=== PATIENT | female | born 1935 | race Caucasian/White ===

== ENCOUNTER 2024-01-13 16:00 | Outpatient (REF) | payer MEDICARE, SELFPAY ==
--- NOTE | ~2024-01-13 | XR_ITS ---
EXAMINATION: XR CHEST CLINICAL INFORMATION: Cough COMPARISON: None available. TECHNIQUE: 2 views of the chest were obtained. FINDINGS: The lungs are hyperinflated. No focal consolidation, interstitial pulmonary edema or pneumothorax. There is slight blunting of the left costophrenic angle which may be due to pleural thickening versus tiny pleural effusion. Heart size is normal. Calcification of the thoracic aorta is indicative of atherosclerotic disease. A left-sided pacemaker pack with leads in the right atrium and right ventricle is seen.. Epicardial lead is also seen. Old right-sided healed rib fractures are seen. XR/XR chest 2V IMPRESSION: 1. No pneumonia. 2. Slight blunting of the left costophrenic angle which may be due to pleural thickening versus tiny pleural effusion.
== END 2024-01-13 16:01 | disposition home or self-care (01) ==
LOC: HO.XRAY 16:00
PROVIDERS: PCP Internal Medicine; Visit Provider Internal Medicine
DX: R05.9 Cough, unspecified (principal)
CPT/HCPCS: 71046

== ENCOUNTER 2024-12-07 12:58 | Outpatient (AMB) | payer MEDICARE, SELFPAY ==
--- NOTE | 2024-12-07 13:05 | A.OFFVIS_ITS ---
Intake Visit Reasons: recurrent UTI Intake Note: New patient is present for Recurrent UTI/Leakage Any Urology Med: None Antibiotic Allergies: None Blood Thinner:Eliquis PVR: 0ml Deep Submergence Vehicle Crewmember Required: No Printing Sign Machine Operator: Printing Sign Machine Operator Present (Kirstie) Accompanied by: Daughter Allergies No Known Allergies Allergy (Verified 12/07/24 13:15) HPI Comments Details: Janette Garza is a 89-year-old female patient of Dr. Quinteros who was accompanied by her daughter at today's office visit. She has a past medical history of hyperlipidemia, atrial fibrillation, and congestive heart failure. She presents to the office today as a new patient for recurrent urinary tract infections. In discussion with the patient today she reports a longstanding history of recurrent urinary tract infections however feels over the last 4-5 months they have been more frequent. She reports previously following up with a urologist in the and undergoing potential cystocele repair however she is unsure as to exactly what the procedure was called. She reports finishing antibiotic therapy last night for a urinary tract infection that was treated by her PCP. She also reports having gone to urgent care for multiple UTI like symptoms. We discussed at length potential causes of recurrent urinary tract infections as well as further treatment options and risks and benefits of these treatment options. We discussed obtaining retroperitoneal ultrasound for further assessment evaluation. In office urinalysis results reviewed with the patient today trace microscopic hematuria noted. She denies any previous history of nicotine dependence and or workplace chemical exposure. We discussed potential causes of microscopic hematuria as well as further workup. PVR 0 mL. She currently denies any UTI like symptoms however has just finished antibiotic therapy yesterday. She reports typical UTI symptoms are fatigue and urinary leakage. She currently denies nocturia, hematuria, dysuria, foul smelling urine, changes to urinary stream, flank pain, fever, and or chills. She otherwise offers no other issues or concerns at this time. [facility] Medical History Hyperlipidemia Congestive heart failure Atrial fibrillation Review of Systems Const All systems reviewed & are unremarkable except as noted in HPI and below Eyes Reports no additional complaints ENT Reports no additional complaints Card Reports as per HPI Resp Reports no additional complaints GI Reports no additional complaints Reports as per HPI Musc Reports no additional complaints Neuro Reports no additional complaints Psych Reports no additional complaints Endo Reports no additional complaints Tutu/Lymph Reports no additional complaints Aller/Immun Reports no additional complaints Physical Exam Const General: cooperative, healthy appearing, comfortable, no acute distress, well developed, alert and awake Orientation/consciousness: patient oriented x3 Limitations: no limitations HEENT Head: Yes normal to inspection, Yes normocephalic and Yes atraumatic Ears: hearing grossly normal bilaterally Eyes General: appearance normal, both eyes and all related structures Neck Neck: Yes normal visual inspection and Yes trachea midline Chest Chest palpation & inspection: normal inspection of the chest Resp Effort & Inspection: normal respiratory effort and able to speak in complete sentences Cardio Rate: regular rate GI Inspection: Yes normal to inspection General: Yes no CVA tenderness Back/Spine/Pelvis Back: no CVA tenderness Skin General skin exam: no rashes or lesions noted Neuro General: patient oriented x3 Extrem General: Yes normal to inspection Psych Appearance: grossly normal and well kempt Mental Status: mental status grossly normal Speech and movement: Normal speech and movement present and Clear speech present Affect: normal affect Attitude: cooperative Thought process: Normal thought process present Thought content: Normal thought content present Insight: Fair insight present (Psych) Judgement: Fair judgement present (Psych) Office Procedures Post Void Residual Post Residual Void Post Void Residual (PVR): 0 15180-Stci Void Residual by ultrasound Results AMB Urinalysis, Automated UA Leukoctes 0 Denys/uL Last Edit by Barbara Grewal [facility] on 12/07/24 13:30 UA Nitrite Negative Last Edit by Barbara Grewal [facility] on 12/07/24 13:30 UA Urobilinogen 0.2 mg/dL Last Edit by Barbara Grewal [facility] on 12/07/24 13:3 0 UA Protein 0 mg/dL Last Edit by Barbara Grewal [facility] on 12/07/24 13:30 UA pH 7.5 Last Edit by Barbara Grewal [facility] on 12/07/24 13:30 UA Blood 10 Toni/uL Last Edit by Barbara Grewal [facility] on 12/07/24 13:30 UA Specific Jackson 1.010 Last Edit by Barbara Grewal [facility] on 12/07/24 13: 30 UA Ketone Negative Last Edit by Barbara Grewal [facility] on 12/07/24 13:30 UA Bilirubin 0 mg/dL Last Edit by ANDREY Alcocer on 12/07/24 13:30 UA Glucose 0 mg/dL Last Edit by ANDREY Alcocer on 12/07/24 13:30 Results Reviewed Results Reviewed: Laboratory Last Values Urine pH (Auto) 7.5 12/07/24 13:14 Specific Jackson (Auto) 1.010 12/07/24 13:14 Urine Protein (Auto) 0 mg/dL 12/07/24 13:14 Glucose (UA)(Auto) 0 mg/dL 12/07/24 13:14 Urine Ketones (Auto) Negative 12/07/24 13:14 Urine Blood (Auto) 10 Toni/uL 12/07/24 13:14 Urine Nitrite (Auto) Negative 12/07/24 13:14 Urine Bilirubin (Auto) 0 mg/dL 12/07/24 13:14 Urine Urobilinogen (Auto) 0.2 mg/dL 12/07/24 13:14 Leukocyte Esterase (Auto) 0 Denys/uL 12/07/24 13:14 Assessment & Plan Assessment & Plan (1) Recurrent urinary tract infection: Code(s): N39.0 - Urinary tract infection, site not specified Category: Medical Plan In office urinalysis results reviewed with the patient today; as noted above; will send for urine cytology. PVR 0 mL. Will obtain retroperitoneal ultrasound for further assessment evaluation. Start Estrace cream as discussed and prescribed. Start methenamine and vitamin-C as discussed and prescribed. We discussed potential for near future in office cystoscopy. We discussed potential causes of recurrent urinary tract infections as well as further treatment options and risks and benefits of these treatment options. Discussed UTI prevention with D mannose supplement, vitamin-C, increasing fluid intake, behavioral therapy with timed voiding, perineal hygiene and postcoital voiding, and management of constipation with stool softeners and increased fiber intake. She currently denies any UTI like symptoms however we discussed importance of calling office with any UTI like symptoms. Follow-up in 3 months with imaging to be completed prior and PVR at next office visit; or sooner with any issues, concerns, and or questions. Orders: Orders Urine Cytology Today N39.0 - Urinary tract infection, site not specified AMB Urinalysis Automated Today Z13.9 - Encounter for screening, unspecified AMB Post Void Residual by ultrasound Today N39.0 - Urinary tract infection, site not specified US retroperitoneal comp Today N39.0 - Urinary tract infection, site not specified Medications: New estradiol 0.01%(0.1mg/gram) 2 grams vaginal DAILY 90 days 42.5 grams 3RF methenamine hippurate 1 g PO daily 90 days 90 tabs 1RF ascorbic acid (vitamin C) 1 g PO DAILY 90 days 90 tabs 1RF N39.0 - Urinary tract infection, site not specified Patient Instructions: The patient had an opportunity to ask questions regarding the treatment plan. All questions were answered. Physical exam, labs, and imaging were discussed and reviewed in detail. As well as risks, benefits, and discussion of treatment choices. No major barriers to understanding were identified. The patient expressed understanding and agreement with the above treatment plan. The patient was made aware they should contact our office by phone for worsening of their current condition, the appearance of new symptoms, or with any questions or concerns. Compliance is encouraged with any medications and follow up testing that is ordered. It is a privilege to be allowed the opportunity to participate in? your urological care.? Again, if you have any questions or concerns If you have any questions or concerns please do not hesitate to contact me. The office is [phone]. This note is constructed using voice recognition software. While every effort has been made to ensure accuracy dresser tender errors may have been included. Yours sincerely, EL Parmar-IVÁN Coding Level of Care Code New Pt Level 4 (22161) Diagnoses Recurrent urinary tract infection N39.0 CPT Codes Post Residual Void - PVR CPT Code: 94670-Lwfd Void Residual by ultrasound ([id number])
--- OUTSIDE RECORDS SUMMARY | 2024-12-07 15:05 | XMS_ITS | Clinical Summary ---
Author Organization [facility] Address [phone] [place] [id number] Care Team Providers Care Pressfitter Name Role Phone Anmol Quinteros DO Primary Care Provider [phone] Allergies Active Allergy Reactions Criticality Noted Date Comments [facility] Dust 02/19/2021 Other Reaction(s): NASAL CONGESTION Mold Other (See Comments) 02/19/2021 Medications Medication Sig Dispensed Refills Start Date End Date Status metoprolol succinate (TOPROL-XL) 25 MG 24 hr tablet 05/28/2023 Active aspirin 81 MG EC tablet Take 81 mg by mouth daily. pt reports not taking 10/30/2024 Active magnesium oxide 250 mg (150 mg elemental) Tab Take 400 mg by mouth daily. Active omega-3 fatty acids-fish oil 340-1,000 mg Cap Take 1 capsule by mouth daily. 900mn Active levothyroxine (SYNTHROID,LEVOTH ROID) 25 MCG tablet Take 25 mcg by mouth every morning. Active ELIQUIS 2.5 mg Take 1 tablet (2.5 mg total) by mouth 2 (two) times a day. 180 tablet 3 02/22/2024 Active potassium chloride (KLOR-CON) 10 MEQ ER tablet Take 1 tablet (10 mEq total) by mouth daily. 90 tablet 3 03/10/2024 Active atorvastatin (LIPITOR) 40 MG tablet Take 1 tablet (40 mg total) by mouth daily. 90 tablet 3 03/11/2024 Active acetaminophen (TYLENOL) 500 MG tablet Take 500 mg by mouth daily as needed. Active ascorbic acid, vitamin C, (VITAMIN C) 500 MG tablet Take 1 tablet by mouth 2 (two) times a day. Active cranberry fruit 400 mg Tab Take 400 mg by mouth daily. Active bumetanide (BUMEX) 1 MG tabletIndications :Other congestive heart failure [The details of the medication are not available because there are pending changes by a home health clinician.] 180 tablet 3 08/05/2024 07/31/2025 Active Additional Information Patient taking differently:2 mg Oral Daily, 1-2 tabs dailyHold while on ABXHold for BP <110/60, Reported on 11/05/2024 cholecalciferol, vitamin D3, (VITAMIN D3) 25 mcg (1,000 unit) capsule Take 1,000 Units by mouth daily. 11/16/2024 Active cefdinir (OMNICEF) 300 MG capsule Take 300 mg by mouth daily. 12/02/2024 Active cefdinir (OMNICEF) 300 MG capsule Take 300 mg by mouth daily. ordered by Elma jaquez 11/04/2024 11/10/2024 Active Problems Problem Noted Date Diagnosed Date Congestive heart failure 06/17/2023 Assessment & Plan (09/13/2024 1:19 PM EST): This patient is currently euvolemic with no heart failure admissions EF is 25 to 30% from an old anterior wall HI Assessment & Plan (07/26/2024 1:37 PM EDT): She is euvolemic but was having some episodes of chest pressure which I will investigate with an echo and a pharmacologic stress test. I will follow-up with her thereafter Assessment & Plan (07/16/2023 4:35 PM EDT): We had a detailed discussion with the patient with regards to upgrade. In view of her age, nonischemic cardiomyopathy, absence of tachyarrhythmias on pacemaker patient opted not to undergo upgrade to ICD. Upgrade to ICD will not make any changes to her quality of life but has the potential to cardiovert her into normal rhythm. Patient at this point opted not to undergo upgrade. Assessment & Plan (07/07/2023 1:23 PM EDT): Probably not symptomatic from a heart failure standpoint at this time I have ordered a BMP and renal labs Assessment & Plan (06/17/2023 11:59 AM EDT): As mentioned this patient will get an echocardiogram so I can assess LV function and valvular structures. She is not known to have coronary disease. Currently she is euvolemic as above. Benign essential hypertension 06/17/2023 Assessment & Plan (09/13/2024 1:19 PM EST): Perfectly controlled to the guidelines. Assessment & Plan (07/26/2024 1:38 PM EDT): Well-controlled at this time Assessment & Plan (07/07/2023 1:22 PM EDT): Well-controlled Assessment & Plan (06/17/2023 11:59 AM EDT): Well-controlled to the guidelines. Pure hypercholesterolemia 06/17/2023 Assessment & Plan (09/13/2024 1:19 PM EST): LDL is aggressively controlled at less than 70 mg/dL. Assessment & Plan (07/26/2024 1:38 PM EDT): LDL should be less than 70 she is on high intensity statin therapy. Assessment & Plan (07/07/2023 1:23 PM EDT): LDL should be less than 70 Assessment & Plan (06/17/2023 12:00 PM EDT): LDL should be less than 70 mg/dL at this time. Presence of permanent cardiac pacemaker 06/17/20 Assessment & Plan (09/13/2024 1:20 PM EST): There have been no discharges and this is followed in our device clinic remotely Assessment & Plan (07/26/2024 1:37 PM EDT): This is functioning well Assessment & Plan (07/07/2023 1:22 PM EDT): At this time I will send her to our EP doctor for consideration of biventricular ICD upgrade I will see her in July Assessment & Plan (06/17/2023 12:00 PM EDT): She is going to bring in the device type so we can enroll this person in our remote monitoring clinic Encounters Date Type Department Care Team Description 12/02/2024 3:30 PM EST Home Care Visit [facility] [address] [place] [phone] Lyric Pierre, PT PT OASIS DISCHARGE VISIT 12/01/2024 Telephone [facility] [address] [place] [address] [address] [place] [address] Lucien Rao, SRINI 11/30/2024 Home Care Visit [facility] [address] [place] [phone] Magda Huerta, SALOME TELEPHONE ENCOUNTER 11/28/2024 Orders Only [facility] [address] [place] [address] Dustin Starks MD 11/25/2024 Documentation [facility] [address] [place] [address] Margot Whitaker COPILOT-HF 11/22/2024 12:15 PM EST Home Care Visit [facility] [address] [place] [phone] Magda Huerta, SALOME LUMBER STRAIGHTENED HOME VISIT 11/17/2024 2:15 PM EST Home Care Visit [facility] [address] [place] [address] Magda Huerta, SALOME LUMBER STRAIGHTENED HOME VISIT 11/16/2024 10:30 AM EST Home Care Visit [facility] [address] [place] [phone] Chauncey Calloway, RASTA SN DISCIPLINE DISCHARGE VISIT 11/15/2024 2:15 PM EST Home Care Visit [facility] [address] [place] [phone] Magda Huerta, LUMBER STRAIGHTENED LUMBER STRAIGHTENED HOME VISIT 11/14/2024 Refill [facility] [address] [place] [address] Bam Thomson MD Medication Refill 11/10/2024 12:30 PM EST Home Care Visit [facility] [address] [place] [address] Lyric Pierre, PT PT EVALUATION 11/08/2024 10:00 AM EST Home Care Visit [facility] [address] [place] [address] Kymberly lEy, RN SN PRECEPTOR CO-VISIT 11/08/2024 10:00 AM EST Home Care Visit [facility] [address] [place] [address] Chauncey Calloway RN SN HOME VISIT 11/05/2024 4:00 AM EST Home Care Visit [facility] [address] [place] [address] Humera Correa, RASTA SN HOME VISIT 11/04/2024 Home Care Visit [facility] [address] [place] [address] Kymberly Ely, RN CASE COMMUNICATION 11/03/2024 Home Care Visit [facility] [address] [place] [address] Ariana Chen, OT TELEPHONE ENCOUNTER 10/31/2024 Plan of Care Documentation [facility] [address] [place] [address] 10/30/2024 1:30 PM EST Home Care Visit [facility] [address] [place] [address] Kymberly Ely, RN SN OASIS START OF CARE (SOC) 10/28/2024 Orders Only [facility] [address] [place] [address] Homehealth, Nicki Limon MD 10/19/2024 Telephone [facility] [address] [place] [address] Brinda Dawson 10/15/2024 Refill [facility] [address] [place] [address] Bereket Antoine MD Medication Refill 09/21/2024 Telephone [facility] [address] [place] [address] Rafael Bentley DO 09/13/2024 1:00 PM EST Office Visit [facility] [address] [place] [address] Rafael Bentley DO Systolic congestive heart failure, unspecified HF chronicity (Primary Dx); Benign essential hypertension; Pure hypercholesterolemi a; Presence of permanent cardiac pacemaker 09/08/2024 11:27 AM EDT - 09/08/2024 11:59 PM EDT Hospital Encounter Non-Invasive Cardiology [address] [place] [address] Rafael Bentley DO Discharge Disposition: Home or Self Care 09/08/2024 11:27 AM EDT - 09/08/2024 11:59 PM EDT Hospital Encounter Echo Lab [address] [place] [address] Rafael Bentley DO Discharge Disposition: Home or Self Care 07/26/2024 Procedure Pass Echo Lab [address] [place] [address] from Last 3 Months Social History Tobacco Use Types Packs/Day Years Used Date Smoking Tobacco: Never Smokeless Tobacco: Current Tobacco Cessation:Ready to Q uit: Not Asked; Counseling Given: Not Answered Home Health Assessment: Transportation Answer Date Recorded Lack of Transportation (Medical) No 12/02/2024 Lack of Transportation (Non-Medical) No 12/02/2024 Patient Unable or Declines to Respond No 12/02/2024 Education Answer Date Recorded Are you interested in more education? Not on watson e 05/20/2023 Are you concerned about learning? Not on file 05/20/2023 No 05/20/2023 No 05/20/2023 Digital Access Answer Date Recorded No 05/20/2023 No 05/20/2023 Reliable internet access at home? Not on file 05/20/2023 Device with a working camera? Not on file Sex and Gender Information Value Date Recorded Sex Assigned at Not on file Gender Identity Not on file Sexual Orientation Not on file Last Filed Vital Signs Vital Sign Reading Time Taken Comments Blood Pressure 98/60 12/02/2024 4:05 PM EST Pulse 80 12/02/2024 4:05 PM EST Temperature 36.1 ??C (97 ??F) 12/02/2024 4:05 PM EST Respiratory Rate 18 11/05/2024 3:18 PM EST Oxygen Saturation 96% 12/02/2024 4:05 PM EST Inhaled Oxygen Concentration - - Weight 47.2 kg (104 lb) 11/16/2024 10:02 AM EST Height 154 cm (5' 0.63 ) 09/13/2024 1:02 PM EST Body Mass Index 19.89 09/13/2024 1:02 PM EST Plan of Treatment Upcoming Encounters Date Type Department Care Team (Late st Contact Info) Description 04/05/2025 1:00 PM EDT Office Visit [facility] [address] [place] [address] [address] [place] [address] Rafael Bentley, [address] [place] [phone] [email or web address] Health Maintenance Due Date Last Done Comments Adult Td,Tdap Booster 1936 DEPRESSION SCREENING 1948 HEPATITIS B SCREENING 1954 PNEUMOCOCCAL VACCINES (50+ years) (1 of 2 - PCV) 1955 ZOSTER VACCINES (1 of 2) 1986 OSTEOPOROSIS SCREENING INITI AL (ONE-TIME) 2001 RSV VACCINE (1 - 1-dose 75+ series) 2011 TSH LEVEL 03/25/2022 03/25/2021, 02/02/2021 INFLUENZA VACCINE (#1) 2024 COVID-19 VACCINE (1 - 2023-2 5 season) 2024 CREATININE LEVEL 08/01/2025 08/01/2024, 07/07/2023 POTASSIUM LEVEL 08/01/2025 08/01/2024, 07/07/2023 HEPATITIS A VACCINES Aged Out No long er eligible based on patient's age to complete this topic HEPATITIS B VACCINES Aged Out No long er eligible based on patient's age to complete this topic HIB VACCINES Aged Out No longer eligi ble based on patient's age to complete this topic MENINGOCOCCAL VACCINES (ACWY) Aged Out No longer eligible based on patient's age to complete this topic Medical Devices Not on file Procedures Procedure Name Priority Date/Time Associated Diagnosis Comments OUTSIDE EP STUDY Routine 10/17/2024 6:41 PM EST NC MYOCARDIAL PERFUSION PHARMACOLOGIC STRESS MULTIPLE Routine 09/08/2024 1:09 PM EDT Other forms of angina pectoris TTE COMPREHENSIVE W/ LVO CONTRAST Routine 09/08/2024 12:34 PM EDT Shortness of breath BASIC METABOLIC PANEL Routine 08/01/2024 12:18 PM EDT Other congestive heart failure from Last 3 Months or Most Recently Relevant to Health Maintenance Results * Outside EP Study Report Only (10/17/2024 6:41 PM EST) Dustin Starks MD CV ELECTROPHYSIOLOGY ORDERABLES * NC Myocardial Perfusion Pharmacologic Stress Multiple (09/08/2024 1:09 PM EDT) Max Predicted Heart Rate 132 bpm Stress/rest perfusion ratio 1.02 Nuc Stress EF 29 % SNMDIAVOL 226.0 mL SNMSYSVOL 161.0 mL Nuc Rest EF 29 % RNMDIAVOL 213.0 mL RNMSYSVOL 152.0 mL Anatomical Region Laterality Modality Heart, Vascular Ultrasound Narrative 09/08/2024 5:08 PM EDT Myocardial perfusion stress test report-abnormal 1 day rest stress protocol in supine and prone position images were obtained. Myocardial perfusion defects were seen in the following segments and severity Multiple myocardial perfusion defects were seen in apical, anterior apical, anterolateral and mid and basal segments. The myocardial perfusion defects are fixed in stress and rest images. No reversibility seen. LV function-finished with global hypokinesis and LV ejection fraction of 29% Left ventricle is dilated TID. ??1.02 Conclusion: Ischemia not seen. Infarction-seen in apical, anteroapical, anterolateral wall. LV function and EF-diminished with ejection fraction of 29% Recommendation ??; Abnormal myocardial perfusion stress test. Clinical correlation suggested. ?? Stress Findings NUCLEAR REPORT: TYPE OF STUDY: Myocardial Perfusion Imaging after a Sitting Regadenoson protocol with gated SPECT. PROTOCOL USED: One day Regadenoson rest-stress protocol in the supine position. Images were obtained in gated tomographic technique. Images were processed in SPECT format, reconstructed tomographically and compared [id number] in short axis, horizontal long axis and vertical long axis. DOSE: Technetium 99m Sestamibi 7.2 mCi injected intravenously in the right arm antecubital vein at rest on 09/08/2024 with post injection scan time of 60 minutes. Technetium 99m Sestamibi 21.6 mCi injected intravenously in the right arm antecubital vein after Regadenoson infusion on 09/08/2024 with post injection scan time of 40 minutes. Overall image quality is good. No motion artifact is present. ECG STRESS REPORT: SITTING REGADENOSON STUDY BMI: 21.23 The Nuclear Stress Test was performed as a pharmaceutical stress test due to the presence of V paced beats. Janette Allen received 0.4 mg of Regadenoson while sitting on a chair. Regadenoson was given IV push over 10 seconds as per protocol by Holly Sparks (MIGUEL), immediately followed by injection of Tc99m Sestamibi by Jose Fountain, the distribution engineering technologist. 1. EKG - Baseline EKG showed V paced. 2. SYMPTOMS -No chest pain. She did feel throat tightness and shortness of breath after the injection of Lexiscan which continued 3 minutes into recovery. She was reversed with 75 mg of aminophylline with immediate symptom relief. 3. PHYSIOLOGY - Resting HR was 86 bpm. After Lexiscan injection, HR 109 bpm 4. ARRHYTHMIAS -Rare isolated PVC, ventricular pair Conclusion -The EKG portion of this test was nondiagnostic due to the presence of V paced beats. There were no reported symptoms concerning for angina. Nuclear images pending and will be reported separately. See attached stress report for full details. Holly Sparks NP Stress Function Defect Left ventricular global function is severely reduced during stress. Stress ejection fraction is 29%. The stress end diastolic cavity size is moderately enlarged. Stress end diastolic size: 226.0 mL. The stress end systolic cavity size is moderately enlarged. Stress end systolic size: 161.0 mL. Rest Function Defect Left ventricular global function is severely reduced at rest. Resting ejection fraction was 29%. The rest end diastolic cavity size is moderately enlarged. Rest end diastolic size: 213.0 ml. The rest end systolic cavity size is moderately enlarged. Rest end systolic size: 152.0 mL. Nuclear Prior Study There is no prior study available for comparison. Nuclear Ancillary Finding There is no evidence of transient ischemic dilation (TID). The TID ratio is 1.02, which is normal. Perfusion Scoring Resting Summed Score: 11 Percent Normal: 16.18% Moderate count reduction in the following segments: basal inferolateral, apical anterior, apical septal, apical lateral and apex. Mild count reduction in the following segments: mid inferolateral. All other segments are normal. [facility] REST Perfusion Scoring Stress Summed Score: 5 Percent Normal: 7.35% Moderate count reduction in the following segments: basal inferolateral and apical anterior. Mild count reduction in the following segments: apex. All other segments are normal. SUPINE IMAGING STRESS Perfusion Scores: SRS Score: 11 Percentage Abnormal: 16.18% Perfusion Scores: SSS Score: 5 Percentage Abnormal: 7.35% Perfusion Scores: SDS Score: N/A Percentage Abnormal: N/A Procedure Note Ion Ahmadi MD - 09/08/2024 Myocardial perfusion stress test report-abnormal 1 day rest stress protocol in supine and prone position images wereobtained. Myocardial perfusion defects were seen in the following segments andseverity Multiple myocardial perfusion defects were seen in apical, anteriorapical, anterolateral and mid and basal segments. The myocardial perfusion defects are fixed in stress and rest images. No reversibility seen. LV function-finished with global hypokinesis and LV ejection fraction of29% Left ventricle is dilated TID. 1.02 Conclusion: Ischemia not seen. Infarction-seen in apical, anteroapical, anterolateral wall. LV function and EF-diminished with ejection fraction of 29% Recommendation ; Abnormal myocardial perfusion stress test. Clinical correlation suggested. Rafael Parks Arcoleo DO CV NM CARDIAC * TTE COMPREHENSIVE W/ LVO CONTRAST (09/08/2024 12:34 PM EDT) Height 154 cm Weight 50 kg Systolic BP 116 mmHg Diastolic BP 70 mmHg Interventricular Septum Thickness 9 6 - 11 mm Left Ventricle Internal Diameter End Diastole 60 37 - 52 mm Left Ventricle Internal Diameter End Systole 57 <35 mm Left Ventricular Outflow Tract Diameter 17.0 mm Left Ventricular Posterior Wall Thickness 8 6 - 11 mm Ejection Fraction 35 50 - 75 Percent Left Atrium Dimension Anterior-Posterior 37 15 - 40 mm Aortic Valve Mean Gradient 3 mmHg Aortic Valve Time Velocity Integral 228.0 mm Aortic Valve Peak Velocity 127.0 cm/s Aortic Valve Peak Gradient 6 mmHg Aortic Sinus Diameter 28 <40 mm Ascending Aorta Diameter 30 <36 mm Inferior Vena Cava Diameter 13 <21 mm Mitral Valve Deceleration Time 153 ms Mitral Valve A Wave Speed 87.3 cm/s Mitral Valve E Wave Speed 136.0 cm/s Raw LV EF% 10 % Relative Wall Thickness 0.27 0.22 - 0.42 Aortic Valve Prosthetic Peak Gradient 6 mmHg Aortic Valve Prosthetic Mean Gradient 3 mmHg Aorta Sinus Index by Height 1.82 cm/m Aorta Sinus CSA index by Height 4.00 cm2/m Asc Aorta CSA Index by Height 4.59 cm2/m Body Surface Area 1.46 m2 Left Atrial Volume Index 21 16 - 34 mL/m2 Aortic Valve Peak Velocity 1.3 m/s Left Atrial Volume 31 mL Left Atrial Volume Index by Height 20 mL/m LVOT VTI REST 16.0 cm Aortic Valve Sinus Index by BSA 19 mm/m2 Ascending Aorta Index 21 mm/m2 Ascending Aorta Index 21 mm Aortic Sinus Index 19 mm Ascending Aorta Diameter 21 mm Aortic Valve Sinus Index 1 19 19 - 27 mm AO ASC DIAM BSA INDEX 20.55 Left Ventricle Ea Lateral Wave Speed 5.0 cm/s MV E/E' Tissue Velocity Lateral 27.20 Left Ventricle E Wave Speed 136.0 cm/s Left Ventricle A Wave Speed 87.0 cm/s MV E/A ratio 1.6 Left Ventricle Ea Septal Wave Speed 5.9 cm/s MV E/e' septal 23.05 Left Ventricle E/e' Average 25.1 Echo E/Ea 23.05 Anatomical Region Laterality Modality Heart Ultrasound Narrative 09/09/2024 8:50 AM EDT Images from the original result were not included. 1. ??This patient was imaged during a paced rhythm. ??The estimated ejection fraction is 35%.There are no obvious regional wall motion abnormalities on the study. ??The left ventricular cavity is severely dilated with an end-diastolic dimension of 60 mm. ??Diastolic function was not assessed. 2. ??Normal RV size and function. 3. ??Trileaflet aortic valve with no evidence of aortic stenosis, the ascending aortic root is normal size. 4. ??There is moderate mitral regurgitation and myxomatous changes to the mitral leaflets. ??There is trace tricuspid insufficiency in the PA pressure was not able to Be calculated. 5. ??Normal pericardiumAnd when compared to the prior echocardiogram, no significant change. Left Ventricle The left ventricle is severely dilated. The LV internal diameter is 60 mm at end diastole. There is normal wall thickness. The LV ejection fraction is 35% (calculated via biplane measurement). LV diastolic function parameters are indeterminate in total. The E wave velocity is 136.0 cm/s. The A wave velocity is 87.0 cm/s. The E/A ratio is 1.6. The e' septal wave velocity is 5.9 cm/s. The e' lateral wave velocity is 5.0 cm/s. The average E/e' ratio is 25.1. Right Ventricle The right ventricle is normal in size. There is normal right ventricular systolic function. Left Atrium The left atrial volume index by BSA is 21 mL/m2. Right Atrium The right atrium is normal in size. There is a lead (pacer) present in the right atrium. The IVC is normal in size. 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 There is mild thickening of both mitral leaflets. There is extensive mitral annular calcification. There is no mitral stenosis. There is moderate mitral regurgitation. Tricuspid Valve The tricuspid valve appears normal. There is no tricuspid stenosis. There is trace tricuspid regurgitation. RV systolic pressure could not be estimated due to insufficient TR Doppler envelope. Aortic Valve The aortic valve is tricuspid. Multiple leaflets are mildly thickened at the tips. There is no aortic stenosis. There is trace aortic regurgitation. Pulmonic Valve The pulmonic valve appears normal. There is no pulmonic stenosis. There is trace pulmonic regurgitation. Pericardium There is a trace pericardial effusion. General Findings The image quality was fair (3). An ultrasound enhancing agent was administered IV, per ASE guidelines. The predominant rhythm during the study was a paced rhythm. Patient tolerated the procedure well. Comparison Findings Compared to prior TTE on 06/25/2023, IAS/IVS The interatrial septum appears normal. There is no evidence of patent foramen ovale (PFO). Rafael Parks Arcolealeah DO CV ECHO ORDERABLES * (ABNORMAL) Basic metabolic panel (08/01/2024 12:18 PM EDT) SODIUM 139 133 - 146 mmol/L [facility] CHLORIDE 97 96 - 108 mmol/L [facility] POTASSIUM 4.4 3.3 - 5.1 mmol/L [facility] CO2 29 21 - 35 mmol/L [facility] BUN 33(H) 6 - 19 mg/dL [facility] CREATININE 1.20 0.5 - 1.5 mg/dL [facility] GLUCOSE 78 70 - 99 mg/dL [facility] CALCIUM 9.8 8.4 - 10.3 mg/dL [facility] EGFR 44(L) >59 mL/min/1.7 3m2 [facility] Comment:Estimated glomerular filtration rate calculated using the CKD-EPI refit equation. ANION GAP 17 10 - 20 mmol/L [facility] Blood 08/01/2024 12:1 8 PM EDT 08/01/2024 12:22 PM EDT Holly Sparks DNP LAB BLOOD ORDERABL ES [facility] [address] [place] [address] from Last 3 Months or Most Recently Relevant to Health Maintenance Advance Directives Documents on File Type Date Recorded Patient Pickle Solution Maker Expl poornima ADAME 11/01/2024 Care Teams Pressfitter Relationship Specialty Start Date End Date BayronBlanca byersno [address] [place] [id number] PCP - General Internal Medicine 07/08/23 Additional Source Comments The information contained in this document represents components of the legal health record. It is not the complete legal health record.[facility]
--- OUTSIDE RECORDS SUMMARY | 2024-12-07 15:05 | XMS_ITS | Encounter Summary ---
Author Organization [facility] Address [phone] [place] [address] Care Team Providers Care Speaker Wirer Name Role Phone Anmol Quinteros DO Primary Care Provider [phone] Encounter Details Date Type Department Care Team (Late st Contact Info) Description 10/29/2023 Procedure Pass Non-Invasive Cardiology [address] [place] [address] Social History Tobacco Use Types Packs/Day Years Used Date Smoking Tobacco: Never Smokeless Tobacco: Current Education Answer Date Recorded Are you interested [...] on file Sexual Orientation Not on file documented as of this encounter Plan of Treatment Upcoming Encounters Date Type Department Care Team (Late st Contact Info) Description 04/05/2025 1:00 PM EDT Office Visit [facility] [address] [address] Rafael Bentley DO 50 [place] [address] documented as of this encounter Visit Diagnoses Not on filedocumented in this encounter Care Teams Speaker Wirer Relationship Specialty Start Date End Date Anmol Quinteros DO [address] [place] [address] 18 [place] [address] PCP - General Internal Medicine 07/08/23 documented as of this encounter Additional Source Comments The information contained in this document represents components of the legal health record. It is not the complete legal health record.[facility]
--- OUTSIDE RECORDS SUMMARY | 2024-12-07 15:05 | XMS_ITS | Encounter Summary ---
Author Organization [facility] Address [phone] [place] [address] Care Team Providers Care Real Estate Account Executive Name Role Phone Anmol Quinteros DO Primary Care Provider [phone] Reason for Visit * Auth/Cert (Routine) Specialty Diagnoses / Procedures Referred By Cinthya alvarez Referred To Contact Referral ID Status Reason Start Date Expiration Date Visits Re quested Visits Authorized [id number] 1 1 Encounter Details Date Type Department Care Team (Late st Contact Info) Description 11/30/2024 Home Care Visit [facility] [address] [place] [address] Magda Huerta, [facility] [address] [place] [address] [email or web address] TELEPHONE ENCOUNTER Social History Tobacco Use Types Packs/Day Years Used Date Smoking Tobacco: Never Smokeless Tobacco: Current Home Health Assessment: Transportation Answer Date Recorded Lack of Transportation (Medical) No 10/30/2024 Lack of Transportation (Non-Medical) No 10/30/2024 Patient Unable or Declines to Respond No 10/30/2024 Education Answer Date Recorded Are you interested [...] Description 04/05/2025 1:00 PM EDT Office Visit [facility] [address] [place] [address] Rafael Bentley DO 50 [place] [address] [email or web address] documented as of this encounter Visit Diagnoses Not on filedocumented in this encounter Care Teams Real Estate Account Executive Relationship Specialty Start Date End Date Anmol Quinteros DO [address] [place] [address] 18 [place] [address] PCP - General Internal Medicine 07/08/23 documented as of this encounter Additional Source Comments The information contained in this document represents components of the legal health record. It is not the complete legal health record.[facility]
--- OUTSIDE RECORDS SUMMARY | 2024-12-07 15:05 | XMS_ITS | Encounter Summary ---
Author Organization [facility] Address [phone] [place] [address] Care Team Providers Care Crew Attendant Name Role Phone Anmol Quinteros DO Primary Care Provider Reason for Visit * Reason Comments COPILOT-HF Encounter Details Date Type Department Care Team (Late st Contact Info) Description 11/25/2024 Documentation [facility] Cardiovascular [address] [address] Margot [place] [address] [place] [address] [email or web address] COPILOT-HF Social History Tobacco Use Types Packs/Day Years [...] on file documented as of this encounter Progress Notes * Margot [place] - 11/25/2024 2:41 PM EST Images from the original note were not included. 11/25/2024 Dear Anmol Swartz DO and Dr. Rafael Bentley DO, We previously identified your patient, Janette Kothari, as an eligible patient for our program. Upon further review of her medical record, we discovered she does not meet our program's criteria. At this point, we will discontinue our attempts to work with her. Thank you for supporting the COPILOT- HF program. Please do not hesitate to reach out to us if you have any further questions or comments. Best, Margot [place] COPILOT-HF [facility] p: f: documented in this encounter Plan of Treatment Upcoming Encounters Date Type Department Care Team (Late st Contact Info) Description 04/05/2025 1:00 PM EDT Office Visit [facility] [address] [place] [address] [facility] [address] [place] [address] Rafael Bentley DO [address] [place] [address] [email or web address] documented as of this encounter Visit Diagnoses Not on filedocumented in this encounter Care Teams Crew Attendant Relationship Specialty Start Date End Date Anmol Quinteros DO [address] [place] [address] 18 [place] [address] PCP - General Internal Medicine 07/08/23 documented as of this encounter Additional Source Comments The information contained in this document represents components of the legal health record. It is not the complete legal health record.[facility]
--- OUTSIDE RECORDS SUMMARY | 2024-12-07 15:05 | XMS_ITS | Encounter Summary ---
Author Organization [facility] Address [phone] [place] [address] Care Team Providers Care Free Lance Model Name Role Phone Anmol Quinteros DO Primary Care Provider [phone] Reason for Visit * Auth/Cert (Routine) Specialty Diagnoses / Procedures Referred By Cinthya alvarez Referred To Contact Referral ID Status Reason Start Date Expiration Date Visits Re quested Visits Authorized [id number] 1 1 Encounter Details Date Type Department Care Team (Late st Contact Info) Description 11/17/2024 2:15 PM EST Home Care Visit [facility] [address] [place] [address] Magda Huerta, PULL OVER MACHINE OPERATOR [address] [place] [address] [email or web address] PULL OVER MACHINE OPERATOR HOME VISIT Social History Tobacco Use Types Packs/Day Years [...] on file documented as of this encounter Last Filed Vital Signs Vital Sign Reading Time Taken Comments Blood Pressure 110/64 11/17/2024 2:21 PM EST Pulse 92 11/17/2024 2:21 PM EST Temperature 36.7 ??C (98 ??F) 11/17/2024 2:21 PM EST Respiratory Rate - - Oxygen Saturation 98% 11/17/2024 2:21 PM EST Inhaled Oxygen Concentration - - Weight - - Height - - Body Mass Index - - documented in this encounter Plan of Treatment Upcoming Encounters Date Type Department Care Team (Late st Contact Info) Description 04/05/2025 1:00 PM EDT Office Visit [facility] [address] [place] [address] [address] [place] [address] Rafael Bentley DO [address] [place] [address] documented as of this encounter Visit Diagnoses Not on filedocumented in this encounter Home Health Visit - Care Plan Visit Details Visit Type -PULL OVER MACHINE OPERATOR HOME VISIT Discipline -Physical Therapy Problems Problem Description Start Date Status Goals Interve ntions HH - Medication Management Disciplines: All Active Home Health Disciplines 10/30/2024 Active 1 goal linked to scheduled/document ed intervention 2 goal interventions scheduled/document ed in this visit HH - Focus of Care and Teaching Disciplines: All Active Home Health Disciplines w/RD 10/30/2024 Active 1 goal linked to scheduled/document ed intervention 1 goal intervention scheduled/document ed in this visit HH - Emergency Planning - Knowledge of Disciplines: All Active Home Health Disciplines 10/30/2024 Active 1 goal linked to scheduled/document ed intervention 2 goal interventions scheduled/document ed in this visit HH - Standard of Care Disciplines: All Active Home Health Disciplines 10/30/2024 Active 1 goal linked to scheduled/document ed intervention 2 goal interventions scheduled/document ed in this visit HH - Mobility and Activity Tolerance - Impaired Disciplines: Physical Therapy 11/10/2024 Active 1 goal linked to scheduled/document ed intervention 1 goal intervention scheduled/document ed in this visit Goals Goal Associated Problem Outcome Goal Met? Visit Notes HH - Safe medication management, avoid unnecessary harm related to medication errors and/or interactions HH - Medication Management No HH - Communication and collaboration to achieve patient goals HH - Focus of Care and Teaching Progressing No HH - Knowledge of options for managing care in the event of an emergency related situation. HH - Emergency Planning - Knowledge of No HH - Achieve care management for a safe to home/community discharge from homecare HH - Standard of Care No HH - Demonstrate maximum mobility and activity level for safe function Description: PT goals pt will demonstrate understanding of HEp to allow for improved functional mobility by 12/02/24 pt will ambulate on flight of stairs using railing mod I with 02 sat above 90% by 12/02/24 pt will ambulate in home without device with 02 sat consistently above 92% by 12/02/24 pt will achieve improved tinetti score to 26/28 as measure of decrease fall risk by 12/02/24 HH - Mobility and Activity Tolerance - Impaired Progressing No Interventions Intervention Associated Problem/Goal Status Variance Visit Notes HH - Complete medication review every visit and medication reconciliation as indicated. Pharmacy information: Problem:HH - Medication Management Goal: - Safe medication management, avoid unnecessary harm related to medication errors and/or interactions Completed - I/E medication management: administration, purpose, dosages, preparation, setup, scheduling, side effects, food/drug interactions, and potential complications as indicated Description: Update patient's copy of medication list as needed. Problem:HH - Medication Management Goal:HH - Safe medication management, avoid unnecessary harm related to medication errors and/or interactions Scheduled - Focus of care, teaching completed and plan for next visit Problem: - Focus of Care and Teaching Goal: - Communication and collaboration to achieve patient goals Completed Primary Clinical Focus this Visit & Instruction Provided: Todays focus on household mobility, strengthening and balance. Provided cues for exercise technique as needed, education regarding increasing water intake for improved hydration Instruction Provided to: patient Response to Instruction/Teaching: Is able to teach back topics as evidenced by demo and verbalization. Plan for Next Visit Specific Focus & Education Needed: strength, balance, mobility New Orders: none Updated Discharge Plan: d/c to hep as appropriate Patient reporting feeling a bit slow today, stating that she likely has not had eough water Standing LE exercises x 10 reps including: heel raises toe raises ham curls hip abd hip ext january partial squats Patient was able to complete her exercises without hand support 75% of the time. Foam balance board used during exercise completion, patient reporting feeling challenged, working harder to complete exercises and maintain balance. CGA provided for balance and safety. Patient required seated rest period every 2 exercises due to fatigue. She was able to complete functional transfers and household mobility wihtout assistance, fwd flexed posture. HH - I/E management of care in an urgent or emergency (ER) situation: When to call your Home Care Team/911, ER plans, supplies, evacuation, when to contact local ER officials and how to stay informed Problem:HH - Emergency Planning - Knowledge of Goal:HH - Knowledge of options for managing care in the event of an emergency related situation. Scheduled HH - Emergency planning assessment: the emergency plan, supplies needed, emergency contact numbers and an evacuation plan were reviewed Description: Patient and Caregiver is/are knowledgeable of emergency plans. Problem:HH - Emergency Planning - Knowledge of Goal:HH - Knowledge of options for managing care in the event of an emergency related situation. Scheduled HH - Assess vital signs, pulse oximetry, pain, and as indicated, orthostatic vital signs Description: use agency-specific parameters ( small cuff) Problem:HH - Standard of Care Goal:HH - Achieve care management for a safe to home/community discharge from homecare Completed HH - Assess skin integrity Problem:HH - Standard of Care Goal:HH - Achieve care management for a safe to home/community discharge from homecare Completed HH - Therapeutic interventions, as indicated: Description: transfer training, including bathroom transfers, balance training, breathing exercises, gait/stair training and therapeutic exercise/home exercise program Problem:HH - Mobility and Activity Tolerance - Impaired Goal:HH - Demonstrate maximum mobility and activity level for safe function Completed documented in this encounter Care Teams Free Lance Model Relationship Specialty Start Date End Date Anmol Quinteros DO [address] [place] [address] PCP - General Internal Medicine 07/08/23 documented as of this encounter Additional Source Comments The information contained in this document represents components of the legal health record. It is not the complete legal health record.[facility]
--- OUTSIDE RECORDS SUMMARY | 2024-12-07 15:05 | XMS_ITS | Encounter Summary ---
Author Organization [facility] Address [phone] [place] [address] Care Team Providers Care Epic Willow Analyst Name Role Phone Anmol Quinteros DO Primary Care Provider [phone] Reason for Visit * Auth/Cert (Routine) Specialty Diagnoses / Procedures Referred By Cinthya alvarez Referred To Contact Referral ID Status Reason Start Date Expiration Date Visits Re quested Visits Authorized [id number] 1 1 Encounter Details Date Type Department Care Team (Late st Contact Info) Description 11/22/2024 12:15 PM EST Home Care Visit [facility] [address] [place] [address] Magda Huerta, ELECTRONIC ASSEMBLER GROUP LEADER [address] [place] [address] [email or web address] ELECTRONIC ASSEMBLER GROUP LEADER HOME VISIT Social History Tobacco Use Types [...] Sign Reading Time Taken Comments Blood Pressure 108/64 11/22/2024 12:24 PM EST Pulse 81 11/22/2024 12:24 PM EST Temperature 36.6 ??C (97.8 ??F) 11/22/2024 12:[address] Respiratory Rate - - Oxygen Saturation 98% 11/22/2024 12:24 PM EST Inhaled Oxygen Concentration - - Weight - - Height - - Body Mass Index - - documented in this encounter Plan of Treatment Upcoming Encounters Date Type Department Care Team (Late st Contact Info) Description 04/05/2025 1:00 PM EDT Office Visit [facility] [address] [place] [address] [address] [place] [address] Rafael Bentley DO [address] [place] [address] documented as of this encounter Visit Diagnoses Not on filedocumented in this encounter Home Health Visit - Care Plan Visit Details Visit Type -ELECTRONIC ASSEMBLER GROUP LEADER HOME VISIT Discipline -Physical Therapy Problems Problem [...] indicated. Pharmacy information: Problem:HH - Medication Management Goal:HH - Safe [...] related to medication errors and/or interactions Scheduled HH - Focus of care, teaching completed and plan for next visit Problem:HH - Focus of Care and Teaching Goal:HH - Communication and collaboration to achieve patient goals Completed Primary Clinical Focus this Visit & Instruction Provided: Todays focus on introduction of seated hep using tband for resistance. Provided cues for exercise technique as needed, cues for breathing techniques at rest and with exertion Instruction Provided to: patient Response to Instruction/Teaching : Is able to teach back topics as evidenced by russell. Plan for Next Visit Specific Focus & Education Needed: strength, balance, mobility New Orders: none Updated Discharge Plan: d/c to hep as appropriate Patient reporting feeling weak , which is usually as sign that she has a bladder infection, that she sent a urine sample to the lab, came back negative Patient completed the following seated UE/LE exercises x 10 reps including: ankle pumps leg presses hip abd march rowing bicep curls red tband for resistance Patient ambulated with steady gait short household distances and completed transfers with good hand placement and safety. She did present with SOB with exertion, cues provided for PLB techniques, patient encouraged to rest between exercises. HH - I/E management of care in [...] Completed documented in this encounter Care Teams Epic Willow Analyst Relationship Specialty Start Date End Date Bayronzeeshan DO Anmol [address] [place] [address] PCP - General Internal Medicine 07/08/23 documented as of this encounter Additional Source Comments The information contained in this document represents components of the legal health record. It is not the complete legal health record.[facility]
--- OUTSIDE RECORDS SUMMARY | 2024-12-07 15:05 | XMS_ITS | Encounter Summary ---
Author Organization [facility] Address [phone] [place] [address] Care Team Providers Care Director Oracle Database Name Role Phone Anmol Quinteros DO Primary Care Provider [phone] Reason for Visit * Auth/Cert (Routine) Specialty Diagnoses / Procedures Referred By Cinthya alvarez Referred To Contact Referral ID Status Reason Start Date Expiration Date Visits Re quested Visits Authorized [id number] 1 1 Encounter Details Date Type Department Care Team (Late st Contact Info) Description 11/08/2024 10:00 AM EST Home Care Visit [facility] [address] [place] [address] Kymberly Ely, RN [address] [place] [address] [email or web address] PRECEPTOR CO-VISIT Social History Tobacco Use Types Packs/Day Years [...] Description 04/05/2025 1:00 PM EDT Office Visit [facility] [address] [place] [address] [address] [place] [address] Rafael Bentley DO [address] [place] [address] [email or web address] documented as of this encounter Visit Diagnoses Not on filedocumented in this encounter Home Health Visit - Care Plan Visit Details Visit Type -SN PRECEPTOR CO- VISIT Discipline -Senior Living Problems Problem Description Start Date Status Goals [...] goal interventions scheduled/document ed in this visit Goals Goal Associated Problem Outcome Goal Met? Visit Notes HH - Safe medication management, avoid unnecessary harm related to medication errors and/or interactions HH - Medication Management No HH - Communication and collaboration to achieve patient goals HH - Focus of Care and Teaching No HH - Knowledge of options for managing care in the event of an emergency related situation. HH - Emergency Planning - Knowledge of No HH - Achieve care management for a safe to home/community discharge from homecare HH - Standard of Care No Interventions Intervention Associated Problem/Goal Status Variance Visit Notes HH - I/E medication management: administration, purpose, dosages, preparation, setup, scheduling, side effects, food/drug interactions, and potential complications as indicated Description: Update patient's copy of medication list as needed. Problem:HH - Medication Management Goal:HH - Safe medication management, avoid unnecessary harm related to medication errors and/or interactions Scheduled HH - Complete medication review every visit and medication reconciliation as indicated. Pharmacy information: Problem:HH - Medication Management Goal:HH - Safe medication management, avoid unnecessary harm related to medication errors and/or interactions Scheduled HH - Focus of care, teaching completed and plan for next visit Problem:HH - Focus of Care and Teaching Goal:HH - Communication and collaboration to achieve patient goals Scheduled HH - I/E management of care in [...] a safe to home/community discharge from homecare Scheduled HH - Assess skin integrity Problem: - Standard of Care Goal:HH - Achieve care management for a safe to home/community discharge from homecare Scheduled documented in this encounter Care Teams Director Oracle Database Relationship Specialty Start Date End Date Anmol Quinteros DO [address] [place] [address] PCP - General Internal Medicine 07/08/23 documented as of this encounter Additional Source Comments The information contained in this document represents components of the legal health record. It is not the complete legal health record.[facility]
--- OUTSIDE RECORDS SUMMARY | 2024-12-07 15:05 | XMS_ITS | Encounter Summary ---
Author Organization [facility] Address [phone] [place] [address] Care Team Providers Care Felt Cutting Machine Operator Name Role Phone Anmol Quinteros DO Primary Care Provider [phone] Reason for Visit * Auth/Cert (Routine) Specialty Diagnoses / Procedures Referred By Cinthya alvarez Referred To Contact Referral ID Status Reason Start Date Expiration Date Visits Re quested Visits Authorized [id number] 1 1 Encounter Details Date Type Department Care Team (Late st Contact Info) Description 11/15/2024 2:15 PM EST Home Care Visit [facility] [address] [place] [address] Magda Huerta, [employer] [address] [place] [address] [email or web address] [employer] HOME VISIT Social History Tobacco Use Types [...] Sign Reading Time Taken Comments Blood Pressure 102/62 11/15/2024 3:03 PM EST Pulse 83 11/15/2024 3:03 PM EST Temperature 36.6 ??C (97.8 ??F) 11/15/2024 3:03 PM ES T Respiratory Rate - - Oxygen Saturation 99% 11/15/2024 3:03 PM EST Inhaled Oxygen Concentration - - Weight - - Height - - Body Mass Index - - documented in this encounter Plan of Treatment Upcoming Encounters Date Type Department Care Team (Late st Contact Info) Description 04/05/2025 1:00 PM EDT Office Visit [facility] [address] [place] [address] Dr [address] [place] [address] Rafael Bentley DO [address] [place] [address] documented as of this encounter Visit Diagnoses Not on filedocumented in this encounter Home Health Visit - Care Plan Visit Details Visit Type -[employer] HOME VISIT Discipline -Physical Therapy Problems Problem [...] Instruction Provided: Todays focus on introduction of standing strengthening and balance program, household mobility, vital sign monitoring. Provided cues as needed for exercise technique Instruction Provided to: patient Response to Instruction/Teaching: Is able to teach back topics as evidenced by demo and verbalization. Plan for Next Visit Specific Focus & Education Needed: hep review and progression, balance and mobility New Orders: none Updated Discharge Plan: d/c to hep as appropriate Patient reporting that she has not been exercising, still fatigues easily Standing LE exercises x 10 reps including: heel raises toe raises ham curls hip abd hip ext march partial squats Patient was able to complete without hand support 75% of the time. She demonstrated slow walk with bounce and sidestepping with bounce that she had completed in the past during PT, would like to include these in her new program Patient ambulated without use of AD during visit, posture somewhat forward flexed, occasional decreased foot clearance. She was able to stand from sitting surface without assistance. 02 sat remained WNL following periods of exertion, with patient acknowledging fatigue following exercise completion, although stating that she felt better. Patient reporting that her breathing/SOB have improved. HH - I/E management of care in an urgent or emergency (ER) situation: When to call your Home Care Team/91, ER plans, supplies, evacuation, when to contact [...] Completed documented in this encounter Care Teams Felt Cutting Machine Operator Relationship Specialty Start Date End Date Anmol Quinteros DO [address] [place] [address] [address] [place] [address] PCP - General Internal Medicine 07/08/23 documented as of this encounter Additional Source Comments The information contained in this document represents components of the legal health record. It is not the complete legal health record.[facility]
--- OUTSIDE RECORDS SUMMARY | 2024-12-07 15:05 | XMS_ITS | Encounter Summary ---
Author Organization [facility] Address [phone] [place] [address] Care Team Providers Care Cone Chocolate Dipper Name Role Phone Anmol Quinteros DO Primary Care Provider [phone] Encounter Details Date Type Department Care Team (Late Contact Info) Description 11/28/2024 Orders Only [facility] Adriana Stacy [address] [place] [address] Dustin Starks MD [address] [place] [address] Social History Tobacco Use Types Packs/Day Years [...] Description 04/05/2025 1:00 PM EDT Office Visit [facility] Adriana Stacy [address] [place] [address] Rafael Bentley DO [address] [place] [address] [email or web address] documented as of this encounter Procedures Procedure Name Priority Date/Time Associated Diagnosis Comments OUTSIDE EP STUDY Routine 10/17/2024 6:41 PM EST documented in this encounter Results * Outside EP Study Report Only (10/17/2024 6:41 PM EST) Dustin Starks MD CV ELECTROPHYSIOLOGY ORDERABLES documented in this encounter Visit Diagnoses Not on filedocumented in this encounter Care Teams Cone Chocolate Dipper Relationship Specialty Start Date End Date Anmol Quinteros DO [address] [place] [address] PCP - General Internal Medicine 07/08/23 documented as of this encounter Additional Source Comments The information contained in this document represents components of the legal health record. It is not the complete legal health record.[facility]
--- OUTSIDE RECORDS SUMMARY | 2024-12-07 15:05 | XMS_ITS | Encounter Summary ---
Author Organization [facility] Address [address] [place] [address] Care Team Providers Care Motor Pool Driver Name Role Phone Anmol Quinteros DO Primary Care Provider [phone] Encounter Details Date Type Department Care Team (Latest Contact Info) Description 11/30/2024 3:59 PM EST - 11/30/2024 11:59 PM EST Hospital Encounter [facility] Xray [address] [place] [address] CHF (congestive heart failure), NYHA class I, acute on chronic, combined (CMS/HCC) Discharge Disposition: Home or Self Care Social History Tobacco Use Types Packs/Day Years Used Date Smoking Tobacco: Never Assessed Sex and Gender Information Value Date Recorded Sex Assigned at Female 11/30/2024 3:55 PM EST Gender Identity Female 11/30/2024 3:55 PM EST Sexual Orientation Straight 11/30/2024 3: 55 PM EST Job Start Date Occupation Industry Not on file Not on file Not on file documented as of this encounter Discharge Disposition Disposition Code Departure Means Destination Home or Self Care documented in this encounter Plan of Treatment Not on file documented as of this encounter Procedures Procedure Name Priority Date/Time Associated Diagnosis Comments XR CHEST 2 VIEWS Routine 11/30/2024 4:10 PM EST CHF (congestive heart failure), NYHA class I, acute on chronic, combined (CMS/HCC) documented in this encounter Results * XR Chest 2 Views (11/30/2024 4:10 PM EST) Anatomical Region Laterality Modality Body Radiographic Deann ging 12/01/2024 7:58 AM EST Impressions 12/01/2024 7:59 AM EST No acute pulmonary disease. Specifically, there is no evidence of pulmonary edema as questioned clinically. Findings as above consistent with COPD. Mild cardiomegaly. Code 88481 -------- FINAL REPORT -------- Dictated By: Tyron Moore Dictated Date: 12/01/2024 07:58 ET Assigned Physician: Tyron Moore Reviewed and Electronically Signed By: Tyron Moore Signed Date: 12/01/2024 07:59 ET Workstation ID: [id number] Transcribed By: Self Edit Transcribed Date: 12/01/2024 07:58 ET Narrative 12/01/2024 7:59 AM EST HISTORY: The patient is an 89-year-old female with dyspnea and clinical concern for pulmonary edema. FINDINGS: PA and lateral radiographs of the chest, without previous for comparison, demonstrate the presence of a dual-chamber cardiac pacemaker with its leads appearing intact and in good position. The bony structures are of normal appearance. The cardiac silhouette is mildly enlarged. The aortic knob is calcified. The lungs are hyperinflated with flattening of the diaphragm consistent with chronic obstructive pulmonary disease. ??There is no consolidation, mass, pulmonary vascular congestion, pulmonary edema, or pleural effusion. Procedure Note Tyron Moore MD - 12/01/2024 HISTORY: The patient is an 89-year-old female with dyspnea and clinicalconcern for pulmonary edema. FINDINGS: PA and lateral radiographs of the chest, without previous forcomparison, demonstrate the presence of a dual-chamber cardiac pacemakerwith its leads appearing intact and in good position. The bony structuresare of normal appearance. The cardiac silhouette is mildly enlarged. Theaortic knob is calcified. The lungs are hyperinflated with flattening ofthe diaphragm consistent with chronic obstructive pulmonary disease.There is no consolidation, mass, pulmonary vascular congestion, pulmonaryedema, or pleural effusion. IMPRESSION: No acute pulmonary disease. Specifically, there is no evidence ofpulmonary edema as questioned clinically. Findings as above consistentwith COPD. Mild cardiomegaly. Code 11459 -------- FINAL REPORT -------- Dictated By: Tyron Moore Dictated Date: 12/01/2024 07:58 ET Assigned Physician: Tyron Moore Reviewed and Electronically Signed By: Tyron Moore Signed Date: 12/01/2024 07:59 ET Workstation ID: [id number] Transcribed By: Self Edit Transcribed Date: 12/01/2024 07:58 ET Anmol Quinteros DO IMG XR PROCEDURES documented in this encounter Visit Diagnoses Diagnosis CHF (congestive heart failure), NYHA class I, acute on chronic, combined (CMS/HCC) documented in this encounter Care Teams Motor Pool Driver Relationship Specialty Start Date End Date Anmol Quinteros DO [address] [place] [id number] PCP - General Internal Medicine 11/30/24 documented as of this encounter
--- OUTSIDE RECORDS SUMMARY | 2024-12-07 15:05 | XMS_ITS | Encounter Summary ---
Author Organization [facility] Address [phone] [place] [address] Care Team Providers Care Driver Manager Name Role Phone Anmol Quinteros DO Primary Care Provider [phone] Reason for Visit * Reason Comments Medication Refill Encounter Details Date Type Department Care Team (Late Contact Info) Description 10/15/2024 Refill [facility] [address] [place] [address] Dr [address]acy [address] [place] [address] Berekte Antoine MD [address] [place] [address] [email or web address] Medication Refill Social History Tobacco Use Types Packs/Day Years [...] Encounters Date Type Department Care Team (Late Contact Info) Description 04/05/2025 1:00 PM EDT Office Visit [facility] [address] [place] [address] Dr Stacy [address] [place] [address] Rafael Bentley DO [address] [place] [address] [email or web address] documented as of this encounter Visit Diagnoses Not on filedocumented in this encounter Care Teams Driver Manager Relationship Specialty Start Date End Date Aldair DO Anmol [address] [place] [address] 18 [place] [address] PCP - General Internal Medicine 07/08/23 documented as of this encounter Additional Source Comments The information contained in this document represents components of the legal health record. It is not the complete legal health record.[facility]
--- OUTSIDE RECORDS SUMMARY | 2024-12-07 15:05 | XMS_ITS | Encounter Summary ---
Author Organization [facility] Address [phone] [place] [address] Care Team Providers Care Lead Sustainability Specialist Name Role Phone Anmol Quinteros DO Primary Care Provider [phone] Encounter Details Date Type Department Care Team (Late st Contact Info) Description 07/26/2024 Procedure Pass Echo [facility] [place] [place], [place] [id number] Social History Tobacco Use Types Packs/Day Years [...] Description 04/05/2025 1:00 PM EDT Office Visit [facility] [address] [place] [address] [facility] [place] [address] Rafael Bentley DO [address] [place] [address] documented as of this encounter Visit Diagnoses Not on filedocumented in this encounter Care Teams Lead Sustainability Specialist Relationship Specialty Start Date End Date Anmol Quinteros DO [address] [place] [address] 18 [place] [address] PCP - General Internal Medicine 07/08/23 documented as of this encounter Additional Source Comments The information contained in this document represents components of the legal health record. It is not the complete legal health record.[facility]
--- OUTSIDE RECORDS SUMMARY | 2024-12-07 15:05 | XMS_ITS | Encounter Summary ---
Author Organization [facility] Address [phone] [place] [address] Care Team Providers Care Validation Specialist Name Role Phone Pcp, Unknown Primary Care Provider Anmol Middleton DO Primary Care Provider [phone] Encounter Details Date Type Department Care Team (Late st Contact Info) Description 06/22/2023 Procedure Pass Echo Lab [place] [place] [address] Social History Tobacco Use Types Packs/Day Years [...] Description 04/05/2025 1:00 PM EDT Office Visit [facility] [address] [place] [address] [place] [address] Rafael Bentley DO [address] [place] [address] documented as of this encounter Visit Diagnoses Not on filedocumented in this encounter Care Teams Validation Specialist Relationship Specialty Start Date End Date Pcp, Unknown PCP - General 05/20/23 07/07/23 Anmol Quinteros DO [address] [place] [address] 18 [place] [address] PCP - General Internal Medicine 07/08/23 documented as of this encounter Additional Source Comments The information contained in this document represents components of the legal health record. It is not the complete legal health record.[facility]
--- OUTSIDE RECORDS SUMMARY | 2024-12-07 15:05 | XMS_ITS | Encounter Summary ---
Author Organization [facility] Address [phone] [place] [address] Care Team Providers Care Passenger Rate Clerk Name Role Phone Anmol Quinteros DO Primary Care Provider [phone] Encounter Details Date Type Department Care Team (Latest Contact Info) Description 10/29/2023 Ancillary Orders Non-Invasive Cardiology [address] [place] [address] Rafael Bentley DO [address] [place] [address] [email or web address] Other cardiomyopathy (Primary Dx) Social History Tobacco Use Types Packs/Day Years [...] Description 04/05/2025 1:00 PM EDT Office Visit [facility] [address] [place] [address] Rafael Bentley DO [address] [place] [address] [email or web address] Scheduled Orders Name Type Priority Associated Diagnoses Orde r Schedule EP Device Check / Follow Up Cardiac Monitors Routine Other cardiomyopathy Other for 12 Occurrences starting 10/29/2023 until 10/29/2025, 1 completed documented as of this encounter Results * DEVICE CHECK: PPM IN-HOME INTERROGATION (10/29/2023 4:57 PM EST) Narrative Mc Rafael Parks DO - 11/11/2023 9:12 AM EST Reason for appointment: ??Remote pacemaker interrogation HPI: Routine 3 month remote pacemaker interrogation. ??No device related complaints. Indication for device: Cardiomyopathy. ?? Examination: ?? Device type: BiV Pacemaker Guide Tour: [employer] Mode: ??DDD LRL/UPL: ??60/120 bpm ?? Mode switches: 0 High V rates: 0 Thresholds, impedances, and sensing stable. Atrial pacin% Ventricular pacin% Battery: 7.5 yrs Additional comments: ??Device functioning appropriately. ?? Normal device function. Patient to follow-up for continued monitoring every 3 months. Report prepared by Tayla Donohue RN ?? Procedure Note Rafael Bentley DO - 11/11/2023 Reason for appointment: Remote pacemaker interrogation HPI: Routine 3 month remote pacemaker interrogation. No device relatedcomplaints. Indication for device: Cardiomyopathy. Examination: Device type: BiV Pacemaker Guide Tour: [employer] Mode: DDD LRL/UPL: 60/120 bpm Mode switches: 0 High V rates: 0 Thresholds, impedances, and sensing stable. Atrial pacin% Ventricular pacin% Battery: 7.5 yrs Additional comments: Device functioning appropriately. Normal device function. Patient to follow-up for continued monitoringevery 3 months. Report prepared by Tayla Donohue RN Rafael Bentley DO CV CARDIAC SERVICES ORDERABLES documented in this encounter Visit Diagnoses Diagnosis Other cardiomyopathy Other cardiomyopathy- Primary documented in this encounter Care Teams Passenger Rate Clerk Relationship Specialty Start Date End Date Anmol Quinteros DO [address] [place] [address] PCP - General Internal Medicine 07/08/23 documented as of this encounter Additional Source Comments The information contained in this document represents components of the legal health record. It is not the complete legal health record.[facility]
--- OUTSIDE RECORDS SUMMARY | 2024-12-07 15:05 | XMS_ITS | Continuity of Care Document ---
Author Organization [facility] [place] Address [address] [place] [address] Phone Care Team Providers Care Tow Motor Operator Name Role Phone Unavailable Unavailable Unavailable Allergies, [...] times daily starting after surgery - Active [phone] or [phone] BromSite 0.075 % eye drops instill 1 [...] Provider Providers Copied on Encounter [facility], [address] [place] [address], [id number], tel:[phone] [facility] S/P PEIOL (chief complaint) Presence of pseudophakia 8 No Custodian Manager : Finn Durbin, [facility] [place], [address]. tel:[phone] [facility], , [address] [place] [address], [id number], tel:[phone] [facility] Center [facility] No Information 8 Walter Santana. [address], [place], [id number]. tel:[phone] Specialist : Louis Sepulveda, [place], [address]. tel:[phone] [facility], , [address] [place], [place], [id number], [place] tel:[phone] [facility] No Information Center [facility] Surgery. [address] [place], [place], [id number], [place]. tel:[phone] Referring Provider: Max Colon. [facility], , [address] [place] [address], [id number], [place] tel:[phone] [facility] No Information 8 Walter Santana. [address], [place], [id number]. tel:[phone] [facility], , [facility] [place], [place], [id number], [place] tel:[phone] [facility] s/p PE IOL (04/02/18) (chief complaint)b lurry vision, glare (chief complaint) Presence of intraocular lensCombined forms of age-related cataract, right eye 8 Deja Goodrich. [address], [place], [id number], [place]. tel:[phone] Specialist : iFnn Durbin, [place], [address]. tel:[phone] [facility], , [facility] [place], [place], [id number], [place] tel:[phone] [facility] No Information 8 Walter Santana. [address], [place], [id number]. tel:[phone] Specialist : [place], [address]. tel:[phone] [facility], , [address] [place], [place], [id number], [place] tel:[phone] [facility] No Information [facility] Surgery. [address] [place], [place], [id number], [place]. tel:[phone] Referring Provider: Max Colon. [facility], , [facility] [place], [place], [id number], [place] tel:[phone] [facility] No Information Walter Santana. [address] [place] [address], [id number]. tel:[phone] [facility], , [facility] [place], [place], [id number], [place] tel:[phone] [facility] No Information Walter Santana. [address] [place] [address], [id number]. tel:[phone] [facility], , [facility] [place], [place], [id number], [place] tel:[phone] [facility] Glare/blurr y vision (chief complaint) Combined forms of age-related cataract, left eyeCombined forms of age-related cataract, right eyeVitreous degeneration, bilateral Walter Santana. [address] [place] [address], [id number]. tel:[phone] Specialist : Finn Durbin, [address], [place], [address]. tel:[phone] Family History Family Member Type Diagnosis Age At Onset Brother Problem (finding) glaucoma Sister Problem (finding) glaucoma Brother Problem (finding) cataract Payers Payer name Insurance type Covered republican ID Authormaribela tisayda(s) [facility] Medicare Advantage [id number] Social History Type Description Quantity Date Captured Comments Alcohol Use Details No Caffeine Use Details Unknown Tobacco Use Status No Information Smoking Status Never smoker Sex Female Chief Complaint And Reason For Visit From encounter dated '04/30/2018 15:20'. S/P PEIOL (chief complaint) Reason For Referral Reason For Referral No Information History Of Present Illness Encounter Date Complaint History Of Prese nt Illness No Information Functional Status Date Functional Assessmen t No Information Instructions Date Instruction Additional Infor jesus See optom as scheduled Related t o [...] Presence of intraocular lens Impression/Plan - Rebel tient advised to continue to use drops as [...] of age-related cataract, right eye Impression/Plan - Di scussed diagnosis in detail with patient. Will continue to observe condition and or symptoms. Related to Vitreous degeneration, bilateral Impression/Plan - Ca taracts account for the patient's complaints. Discussed all risks, benefits, procedures and recovery. Patient understands changing glasses are not likely to significantly improve vision. Patient desires to have surgery, recommend phacoemulsification with intraocular lens. Related to Combined forms of age-related cataract, left eye Impression/Plan - Ca taracts account for the patient's complaints. Discussed all risks, benefits, procedures and recovery. Patient understands changing glasses are not likely to significantly improve vision. Patient desires to have surgery, recommend phacoemulsification with intraocular lens. Related to Combined forms of age-related cataract, right eye Assessments Type Assessment Date assessment Presence of pseudophakia 2017 impression Presence of pseudophakia: Z96.1. OD. Patient Care Teams Name Effective Dates (start - stop) Status Members No Information
--- OUTSIDE RECORDS SUMMARY | 2024-12-07 15:05 | XMS_ITS | Encounter Summary ---
Author Organization [facility] Address [phone] [place] [address] Care Team Providers Care Radiologic Technology Instructor Name Role Phone Anmol Quinteros DO Primary Care Provider [phone] Reason for Visit * Auth/Cert (Routine) Specialty Diagnoses / Procedures Referred By Cinthya alvarez Referred To Contact Referral ID Status Reason Start Date Expiration Date Visits Re quested Visits Authorized [id number] 1 1 Encounter Details Date Type Department Care Team (Late st Contact Info) Description 12/02/2024 3:30 PM EST Home Care Visit [facility] [address] [place] [address] Lyric Pierre, PT [address] [place] [address] [email or web address] PT OASIS DISCHARGE VISIT Social History Tobacco Use Types Packs/Day [...] ??F) 12/02/2024 4:05 PM EST Respiratory Rate - - Oxygen Saturation 96% 12/02/2024 4:05 PM EST Inhaled Oxygen Concentration - - Weight - - Height - - Body Mass Index - - documented in this encounter Plan of Treatment Upcoming Encounters Date Type Department Care Team (Late st Contact Info) Description 04/05/2025 1:00 PM EDT Office Visit [facility] [address] [place] [address] [address] [place] [address] Rafael Bentley DO [address] [place] [place] [id number] documented as of this encounter Visit Diagnoses Not on filedocumented in this encounter Home Health Visit - Care Plan Visit Details Visit Type -PT OASIS DISCHAR GE VISIT Discipline -Physical Therapy Problems Problem Description [...] scheduled/document ed in this visit HH - Falls - Risk of Disciplines: All Active Home Health Disciplines 10/30/2024 Active 1 goal linked to scheduled/document ed intervention 1 goal intervention scheduled/document ed in this visit HH - Standard of Care Disciplines: All Active Home Health Disciplines 10/30/2024 Active 1 goal linked to scheduled/document ed intervention 3 goal interventions scheduled/document ed in this visit [...] Planning - Knowledge of No HH - Knowledge and management of fall prevention measures. HH - Falls - Risk of No HH - Achieve care management for a safe to home/community discharge from homecare HH - Standard of Care No HH - Demonstrate maximum mobility and activity level for safe function Description: PT goals pt will demonstrate understanding of HEp to allow for improved functional mobility by 12/02/24 12/01/24 achieved after review today pt will ambulate on flight of stairs using railing mod I with 02 sat above 90% by 12/02/24 12/01/24 achieved today pt will ambulate in home without device with 02 sat consistently above 92% by 12/02/24 12/01/24 achieved 98% today pt will achieve improved tinetti score to 26/28 as measure of decrease fall risk by 12/02/24 12/01/24 achieved 26/28 today HH - Mobility and Activity Tolerance - Impaired No Interventions Intervention Associated Problem/Goal Status Variance Visit Notes HH - I/E medication management: administration, purpose, dosages, preparation, setup, scheduling, side effects, food/drug interactions, and potential complications as indicated Description: Update patient's copy of medication list as needed. Problem:HH - Medication Management Goal:HH - Safe medication management, avoid unnecessary harm related to medication errors and/or interactions Completed HH - Complete medication review every visit and medication reconciliation as indicated. Pharmacy information: Problem:HH - Medication Management Goal:HH - Safe medication management, avoid unnecessary harm related to medication errors and/or interactions Completed HH - Focus of care, teaching completed and plan for next visit Problem:HH - Focus of Care and Teaching Goal:HH - Communication and collaboration to achieve patient goals Completed Primary Clinical Focus this Visit & Instruction Provided: s: doing well except started UTI antiobiotic 2 days ago which affecs me, has started taking own shower, cooking, went out for medical appt , did stairs a: Discharge summary: pt has received 5 home PT visits with treatment including gait and stair training with monitor of oxygen levels and insruction in strengthening HEP. pt has made good progress and achieved goals today. She demonstrates good understanding of seated theraband HEP. SHe is ambulating safely in home wihtout device maintaining oxygen 98%. Tinetti score is 26/28 placing her at low fall risk. pt's balance is quite good, she is able to SLS without support for 10 seconds or greater. pt reports she has returned to showering on her own and doing some light cooking pt ambulated on flight of stairs to exit home today with supervision. Pt does get fatigued and SOB ascending and takes steps one at a time to conserve her energy, 02 sat 92%. Family assists pt when she is leaving home. pt reports she has new UTI and prescribed antiobiotics which were added to med list today. pt has had chronic UTIs and is seeing urologist next week to help manage. SN has discharged from [facility] 11/16/24. pt is supported by her daughter who is RN. There is no further need for skilled home PT services at this time. notified of discharge from home services today. Instruction Provided to: patient Response to Instruction/Teaching: Is fully able to teach back topics as evidenced by good understanding of HEp and home safety, discharge from [facility] today Plan for Next Visit Specific Focus & Education Needed: n/a New Orders: n/a Updated Discharge Plan: n/a - I/E management of care in an [...] an emergency related situation. Scheduled HH - Complete fall risk assessment scale Problem:HH - Falls - Risk of Goal:HH - Knowledge and management of fall prevention measures. Completed HH - Assess vital signs, pulse oximetry, pain, and as indicated, orthostatic vital signs Description: use agency-specific parameters ( small cuff) Problem: - Standard of Care Goal:HH - Achieve care management for a safe to home/community discharge from homecare Completed HH - I/E discharge plan Problem:HH - Standard of Care Goal:HH - Achieve care management for a safe to home/community discharge from homecare Completed HH - Assess skin integrity Problem:HH - Standard of Care Goal:HH - Achieve care management for a safe to home/community discharge from homecare Scheduled HH - Therapeutic interventions, as indicated: Description: transfer training, including bathroom transfers, balance training, breathing exercises, gait/stair training and therapeutic exercise/home exercise program Problem:HH - Mobility and Activity Tolerance - Impaired Goal:HH - Demonstrate maximum mobility and activity level for safe function Completed This visit Patient completed the following seated UE/LE exercises x 10 reps including: ankle pumps leg presses hip abd march rowing bicep curls red tband for resistance pt ambulating around apartent and home without device safely, 02 sat 98% HR 100 today gait on flight of stairs to garage which is how she exits home today, pt descended using railing step to pattern , then ascended using very sow step to pattern to conserve energy, good safety 02 sat 92% after ascending pt recoverd back to 97% in one minute documented in this encounter Care Teams Radiologic Technology Instructor Relationship Specialty Start Date End Date BayronBlanca byersno [address] [place] [id number] PCP - General Internal Medicine 07/08/23 documented as of this encounter Additional Source Comments The information contained in this document represents components of the legal health record. It is not the complete legal health record.[facility]
--- OUTSIDE RECORDS SUMMARY | 2024-12-07 15:05 | XMS_ITS | Encounter Summary ---
Author Organization [facility] Address [phone] [place] [address] Care Team Providers Care French Drawer Name Role Phone Anmol Quinterso DO Primary Care Provider [phone] Reason for Visit * Auth/Cert (Routine) Specialty Diagnoses / Procedures Referred By Cinthya alvarez Referred To Contact Referral ID Status Reason Start Date Expiration Date Visits Re quested Visits Authorized [id number] 1 1 Encounter Details Date Type Department Care Team ([facility] Contact Info) Description 11/16/2024 10:30 AM EST Home Care Visit [facility] [address] [place] [address] Chauncey Calloway, RASTA [address] [place] [address] [email or web address] SN DISCIPLINE DISCHARGE VISIT Social History Tobacco Use Types [...] Sign Reading Time Taken Comments Blood Pressure 110/60 11/16/2024 10:02 AM EST Pulse 81 11/16/2024 10:02 AM EST Temperature 36.7 ??C (98 ??F) 11/16/2024 10:02 AM EST Respiratory Rate - - Oxygen Saturation 99% 11/16/2024 10:02 AM EST Inhaled Oxygen Concentration - - Weight 47.2 kg (104 lb) 11/16/2024 10:02 AM EST Height - - Body Mass Index 19.89 09/13/2024 1:02 PM EST documented in this encounter Plan of Treatment Upcoming Encounters Date Type Department Care Team (Late st Contact Info) Description 04/05/2025 1:00 PM EDT Office Visit [facility] [address] [place] [address] [address] [place] [address] Rafael Bentley DO [address] [place] [address] [email or web address] documented as of this encounter Visit Diagnoses Not on filedocumented in this encounter Home Health Visit - Care Plan Visit Details Visit Type -SN DISCIPLINE DI [place] Discipline -Jail Problems Problem Description Start Date Status Goals [...] scheduled/document ed in this visit HH - Pain Disciplines: All Active Home Health Disciplines 10/30/2024 [...] - Standard of Care No HH - Frequency of pain interfering with patient's activity or movement will improve with activity or movement by discharge. Description: Pain will be managed over the course of care. Patient's acceptable level of pain is 0 - no pain. HH - Pain No Interventions Intervention Associated Problem/Goal Status Variance [...] and collaboration to achieve patient goals Completed Summary of care provided during episode and patient condition at discharge:Patient on homecare services since 10/30/24 after hospitalization 2nd to weakness with dx of Covid and UTI. PMH: HFrEF s/p dual chamber pacemaker, HTN, A-fib on Eliquis?? Pt. alert and cooperative, VSS with trace edema to Bilateral ankles. Denies any issue with GI/. Pt. still complains of dyspnea/fatigue with exertions- edu. on energy conservations and frequent rest periods. Reports weight gain from 103 lb to 106 couple days ago and had double dose of Bumex as per the PCP order. Today wt. down to 102. Pt. keeping log on daily wt and well educated on reporting significant changes to PCP and/or cardiology. Edu. on low salt diet. Pt. to follow up with urology at the end of November. Discharge instructions and education provided. Pt still has PT service for her functional activities. PCP (Anmol Quinteros DO) office contacted via phone and notified of patients conditions and discharge. Instruction Provided to: Patient Progress to goals: met Pertinent laboratory data: none, discharged 11/16/2024 HH - I/E management of care in an urgent or emergency (ER) situation: When to call your Home Care Team/911, ER plans, supplies, evacuation, when to contact local ER officials and how to stay informed Problem:HH - Emergency Planning - Knowledge of Goal:HH - Knowledge of options for managing care in the event of an emergency related situation. Completed HH - Emergency planning assessment: the emergency plan, supplies needed, emergency contact numbers and an evacuation plan were reviewed Description: Patient and Caregiver is/are knowledgeable of emergency plans. Problem:HH - Emergency Planning - Knowledge of Goal:HH - Knowledge of options for managing care in the event of an emergency related situation. Completed HH - Complete fall risk assessment scale [...] discharge from homecare Completed HH - Assess weight Problem:HH - Standard of Care Goal:HH - Achieve care management for a safe to home/community discharge from homecare Completed HH - Assess pain Problem:HH - Pain Goal:HH - Frequency of pain interfering with patient's activity or movement will improve with activity or movement by discharge. Completed documented in this encounter Care Teams French Drawer Relationship Specialty Start Date End Date Anmol Quinteros DO [address] [place] [address] [address] [place] [address] PCP - General Internal Medicine 07/08/23 documented as of this encounter Additional Source Comments The information contained in this document represents components of the legal health record. It is not the complete legal health record.[facility]
--- OUTSIDE RECORDS SUMMARY | 2024-12-07 15:05 | XMS_ITS | Encounter Summary ---
Author Organization [facility] Address [phone] [place] [address] Care Team Providers Care Stoker Installer Name Role Phone Anmol Quinteros Primary Care Provider [phone] Reason for Visit * Auth/Cert (Routine) Specialty Diagnoses / Procedures Referred By Cinthya alvarez Referred To Contact Referral ID Status Reason Start Date Expiration Date Visits Re quested Visits Authorized [id number] 1 1 Encounter Details Date Type Department Care Team (Late Contact Info) Description 11/08/2024 10:00 AM EST Home Care Visit [facility] [address] [place] [address] Chauncey Calloway, RASTA [address] [place] [address] [email or web address] SN HOME VISIT Social History Tobacco Use Types [...] Sign Reading Time Taken Comments Blood Pressure 100/62 11/08/2024 10:49 AM EST Pulse - - Temperature - - Respiratory Rate - - Oxygen Saturation - - Inhaled Oxygen Concentration - - Weight 48.1 kg (106 lb) 11/08/2024 10:49 AM EST Height - - Body Mass Index 20.27 09/13/2024 1:02 PM EST documented in this encounter Plan of Treatment Upcoming Encounters Date Type Department Care Team (Late st Contact Info) Description 04/05/2025 1:00 PM EDT Office Visit [facility] [address] [place] [address] [address] [place] [address] Rafael Bentley DO [address] [place] [address] [email or web address] documented as of this encounter Visit Diagnoses Not on filedocumented in this encounter Home Health Visit - Care Plan Visit Details Visit Type -SN HOME VISIT Discipline -Senior Care Problems Problem Description Start Date Status Goals [...] Clinical Focus this Visit & Instruction Provided: Pt. alert and cooperative, VSS with diminished RLF. Pt. still complains of frequency no other bladder s/s. Pt. on second course of ABX therapy for 7 days. Complains of abd. cramps while passing BMs. Pt. complains of dyspnea/fatigue with exertions- edu. on energy conservations and frequent rest periods. Edu. on daily wt.-same time usually after morning voids. Edu. on low salt diet. Pt. to follow up with urology for Bladder concerns. Instruction Provided to: Patient Response to Instruction/Teaching: able to fully understand teach back topics as evidenced by verbalizations Plan for Next Visit Specific Focus & Education Needed: CVP//GI assessments, teaching, evaluate effectiveness of ABX tx. New Orders: no Updated Discharge Plan: weekly HH - I/E management of care in an urgent or emergency (ER) situation: When to call your Home Care Team/911, ER plans, supplies, evacuation, when to contact local ER officials and how to stay informed Problem: - Emergency Planning - Knowledge of Goal:HH - Knowledge of options for managing care in the event of an emergency related situation. Completed - Emergency planning assessment: the emergency plan, supplies needed, emergency contact numbers and an evacuation plan were reviewed Description: Patient and Caregiver is/are knowledgeable of emergency plans. Problem: - Emergency Planning - Knowledge of Goal:HH - Knowledge of options for managing care in the event of an emergency related situation. Completed - Assess vital signs, pulse oximetry, pain, and as indicated, orthostatic vital signs Description: use agency-specific parameters ( small cuff) Problem:HH - Standard of Care Goal:HH - Achieve care management for a safe to home/community discharge from homecare Completed HH - Assess skin integrity Problem:HH - Standard of Care Goal:HH - Achieve care management for a safe to home/community discharge from homecare Completed documented in this encounter Care Teams Stoker Installer Relationship Specialty Start Date End Date BayronBlanca byersDO shannan [address] [place] [id number] PCP - General Internal Medicine 07/08/23 documented as of this encounter Additional Source Comments The information contained in this document represents components of the legal health record. It is not the complete legal health record.[facility]
--- OUTSIDE RECORDS SUMMARY | 2024-12-07 15:05 | XMS_ITS | Clinical Summary ---
Author Organization [facility] Address [address] [place] [phone] Phone Care Team Providers Care Residential Substance Abuse Counselor Name Role Phone LouieAnmol leary Primary Care Provider [phone] Encounters Date Type Department Care Team Description 11/30/2024 3:59 PM EST - 11/30/2024 11:59 PM EST Hospital Encounter Xray [address] [place] [address] CHF (congestive heart failure), NYHA class I, acute on chronic, combined (CMS/HCC) Discharge Disposition: Home or Self Care from Last 3 Months Social History Tobacco Use Types Packs/Day Years Used Date Smoking Tobacco: Never Assessed Sex and Gender Information Value Date Recorded Sex Assigned at Female 11/30/2024 3:55 PM EST Gender Identity Female 11/30/2024 3:55 PM EST Sexual Orientation Straight 11/30/2024 3: 55 PM EST Job Start Date Occupation Industry Not on file Not on file Not on file Plan of Treatment Health Maintenance Due Date Last Done Comments Pneumococcal Vaccine: 65+ Ye ars (1 of 2 - PCV) 1942 DTaP,Tdap,and Td Vaccines (1 - Tdap) 1955 Zoster Vaccines (1 of 2) 1986 RSV Immunization Patients 60 + Years Old (1 - 1-dose 75+ series) 2011 Cholesterol Screening (Lipid Panel) 12/03/2023 Depression Screening 12/03/2023 Falls Risk Assessment 12/03/2023 Medicare Annual Wellness Visit 12/03/2023 Osteoporosis Screening (Bone Density Screening) 12/03/2023 Social Influencers of Health Screening 12/03/2023 COVID-19 Vaccine (1 - 2023-2 5 season) 2024 Influenza Vaccine (#1) 2024 Hypertension/CHF/CAD Annual BMP Blood Test 11/30/2025 11/30/2024 HIB Vaccines Aged Out No longer eligi ble based on patient's age to complete this topic HPV Vaccines Aged Out No longer eligi ble based on patient's age to complete this topic Hepatitis A Vaccines Aged Out No long er eligible based on patient's age to complete this topic Hepatitis B Vaccines Aged Out No long er eligible based on patient's age to complete this topic IPV Vaccines Aged Out No longer eligi ble based on patient's age to complete this topic MMR Vaccines Aged Out No longer eligi ble based on patient's age to complete this topic Meningococcal ACWY Vaccine Aged Out N o longer eligible based on patient's age to complete this topic RSV Immunization Patients Un agapito 20 months Aged Out No longer eligible b ased on patient's age to complete this topic Varicella Vaccines Aged Out No longer eligible based on patient's age to complete this topic Procedures Procedure Name Priority Date/Time Associated Diagnosis Comments XR CHEST 2 VIEWS Routine 11/30/2024 4:10 PM EST CHF (congestive heart failure), NYHA class I, acute on chronic, combined (CMS/HCC) CBC WITH AUTO DIFFERENTIAL Routine 11/30/2024 3:07 PM EST Heart failure (CMS/HCC) UTI (urinary tract infection) B-TYPE NATRIURETIC PEPTIDE Routine 11/30/2024 3:07 PM EST Heart failure (CMS/HCC) UTI (urinary tract infection) COMPREHENSIVE METABOLIC PANEL Routine 11/30/2024 3:07 PM EST Heart failure (CMS/HCC) UTI (urinary tract infection) CBC AND DIFFERENTIAL Routine 11/30/2024 3:07 PM EST Heart failure (CMS/HCC) UTI (urinary tract infection) from Last 3 Months Results * XR Chest 2 Views (11/30/2024 4:10 PM EST) Anatomical Region Laterality Modality Body Radiographic Deann ging 12/01/2024 7:58 AM EST Impressions 12/01/2024 7:59 AM EST No acute pulmonary disease. Specifically, there is no evidence of pulmonary edema as questioned clinically. Findings as above consistent with COPD. Mild cardiomegaly. Code 19862 -------- FINAL REPORT -------- Dictated By: Tyron Moore Dictated Date: 12/01/2024 07:58 ET Assigned Physician: Tyron Moore Reviewed and Electronically Signed By: Tyorn Moore Signed Date: 12/01/2024 07:59 ET Workstation ID: [id number] Transcribed By: Self Edit Transcribed Date: 12/01/2024 [...] as above consistentwith COPD. Mild cardiomegaly. Code 78903 -------- FINAL REPORT -------- Dictated By: Tyron Moore Dictated Date: 12/01/2024 07:58 ET Assigned Physician: Tyron Moore Reviewed and Electronically Signed By: Tyron Moore Signed Date: 12/01/2024 07:59 ET Workstation ID: [id number] Transcribed By: Self Edit Transcribed Date: 12/01/2024 07:58 ET Anmol Mercgibran DO IMG XR PROCEDURES * (ABNORMAL) CBC auto differential (11/30/2024 3:07 PM EST) [facility] WBC 8.4 4.8 - 10.8 K/mcL LAB HEMETOLOGY METHOD 11/30/2024 7:55 PM [facility] RBC 4.60 3.80 - 4.80 M/mcL LAB HEMETOLOGY METHOD 11/30/2024 7:55 PM [facility] Hemoglobin 13.5 11.5 - 16.0 g/dL LAB HEMETOLOGY METHOD 11/30/2024 7:55 PM [facility] Hematocrit 41.4 35.0 - 47.0 % LAB HEMETOLOGY METHOD 11/30/2024 7:55 PM [facility] MCV 89.6 79.0 - 98.0 FL LAB HEMETOLOGY METHOD 11/30/2024 7:55 PM [facility] MCH 29.2 27.0 - 32.0 pcg LAB HEMETOLOGY METHOD 11/30/2024 7:55 PM [facility] MCHC 32.6 32.0 - 37.0 g/dL LAB HEMETOLOGY METHOD 11/30/2024 7:55 PM [facility] RDW 14.9 11.0 - 15.0 % LAB HEMETOLOGY METHOD 11/30/2024 7:55 PM [facility] Platelets 197 130 - 400 K/mcL LAB HEMETOLOGY METHOD 11/30/2024 7:55 PM [facility] MPV 11.3(H) 7.0 - 11.0 FL LAB HEMETOLOGY METHOD 11/30/2024 7:55 PM [facility] NRBC 0.0 <1.0 % LAB HEMETOLOGY METHOD 11/30/2024 7:55 PM [facility] NRBC Absolute 0.00 <0.10 K/mcL LAB HEMETOLOGY METHOD 11/30/2024 7:55 PM [facility] Neutrophils Relative 71.9 % LAB HEMETOLOGY METHOD 11/30/2024 7:55 PM [facility] Lymphocytes Relative 17.9 % LAB HEMETOLOGY METHOD 11/30/2024 7:55 PM [facility] Monocytes Relative 7.2 % LAB HEMETOLOGY METHOD 11/30/2024 7:55 PM [facility] Eosinophils Relative 1.9 % LAB HEMETOLOGY METHOD 11/30/2024 7:55 PM [facility] Basophils Relative 0.7 % LAB HEMETOLOGY METHOD 11/30/2024 7:55 PM [facility] Immature Granulocytes Relative 0.4 % LAB HEMETOLOGY METHOD 11/30/2024 7:55 PM [facility] Neutrophils Absolute 6.04 1.50 - 7.00 K/mcL LAB HEMETOLOGY METHOD 11/30/2024 7:55 PM [facility] Lymphocytes Absolute 1.50 1.00 - 5.00 K/mcL LAB HEMETOLOGY METHOD 11/30/2024 7:55 PM [facility] Monocytes Absolute 0.60 0.20 - 1.00 K/mcL LAB HEMETOLOGY METHOD 11/30/2024 7:55 PM [facility] Eosinophils Absolute 0.16 0.00 - 0.50 K/mcL LAB HEMETOLOGY METHOD 11/30/2024 7:55 PM [facility] Basophils Absolute 0.06 0.00 - 0.20 K/mcL LAB HEMETOLOGY METHOD 11/30/2024 7:55 PM EST [facility] Immature Granulocytes Absolute 0.03 0.00 - 0.03 K/mcL LAB HEMETOLOGY METHOD 11/30/2024 7:55 PM [facility] Blood Venous blood specimen / Unknown Venipuncture / Unknown 11/30/2024 3:07 PM EST 11/30/2024 3:07 PM EST [facility] CLIENT ENGAGEMENT SPECIALIST LAB BLOOD ORDERABLES Performing Organization Address City/[facility]/ZIP Co de Phone Number [facility] [address] [place] [address], * (ABNORMAL) B-type natriuretic peptide (11/30/2024 3:07 PM EST) BNP 839(H) <=100 pcg/mL LAB CHEMISTRY METHOD 11/30/2024 8:08 PM [facility] Blood Venous blood specimen / Unknown Venipuncture / Unknown 11/30/2024 3:07 PM EST 11/30/2024 3:07 PM EST [facility] LAB BLOOD ORDERABLES Performing Organization Address [facility]/ZIP Co de Phone Number [facility] [address] [place] [address], * (ABNORMAL) Comprehensive metabolic panel (11/30/2024 3:07 PM EST) Sodium 135 133 - 145 mmol/L LAB CHEMISTRY METHOD 11/30/2024 8:13 PM [facility] Potassium 4.3 3.5 - 5.5 mmol/L LAB CHEMISTRY METHOD 11/30/2024 8:13 PM [facility] Chloride 103 96 - 110 mmol/L LAB CHEMISTRY METHOD 11/30/2024 8:13 PM EST [facility] CO2 27 21 - 32 mmol/L LAB CHEMISTRY METHOD 11/30/2024 8:13 PM [facility] Anion Gap 5 3 - 11 LAB CHEMISTRY METHOD 11/30/2024 8:13 PM [facility] Glucose 113(H) 70 - 100 mg/dL LAB CHEMISTRY METHOD 11/30/2024 8:13 PM [facility] BUN 20 5 - 25 mg/dL LAB CHEMISTRY METHOD 11/30/2024 8:13 PM [facility] Creatinine 1.26(H) 0.50 - 1.10 mg/dL LAB CHEMISTRY METHOD 11/30/2024 8:13 PM [facility] eGFR 41(L) >=60 mL/min/1. 73m2 LAB CHEMISTRY METHOD 11/30/2024 8:13 PM [facility] Comment:Calculation based on the??Chronic Kidney Disease Epidemiology Collaboration (CKD-EPI) equation refit??without adjustment for race. BUN/Creatinine Ratio 15.9 LAB CHEMISTRY METHOD 11/30/2024 8:13 PM [facility] Calcium 10.4 8.5 - 10.5 mg/dL LAB CHEMISTRY METHOD 11/30/2024 8:13 PM [facility] AST (SGOT) 34 10 - 42 unit/L LAB CHEMISTRY METHOD 11/30/2024 8:13 PM [facility] ALT (SGPT) 22 10 - 60 unit/L LAB CHEMISTRY METHOD 11/30/2024 8:13 PM [facility] Alkaline Phosphatase 65 42 - 121 unit/L LAB CHEMISTRY METHOD 11/30/2024 8:13 PM [facility] Total Protein 7.7 6.0 - 8.0 g/dL LAB CHEMISTRY METHOD 11/30/2024 8:13 PM [facility] Albumin 4.3 3.2 - 5.0 g/dL LAB CHEMISTRY METHOD 11/30/2024 8:13 PM [facility] Total Bilirubin 1.0 0.0 - 1.4 mg/dL LAB CHEMISTRY METHOD 11/30/2024 8:13 PM EST [facility] Blood Venous blood specimen / Unknown Venipuncture / Unknown 11/30/2024 3:07 PM EST 11/30/2024 3:07 PM EST Haque Brennan CLIENT ENGAGEMENT SPECIALIST LAB BLOOD ORDERABLES [facility] [address] [place] [address], from Last 3 Months Care Teams Residential Substance Abuse Counselor Relationship Specialty Start Date End Date Anmol Quinteros DO [address] [place] [phone] PCP - General Internal Medicine 11/30/24
--- OUTSIDE RECORDS SUMMARY | 2024-12-07 15:05 | XMS_ITS | Encounter Summary ---
Author Organization [facility] Address [phone] [place] [address] Care Team Providers Care Car Ferry Master Name Role Phone Anmol Quinteros DO Primary Care Provider [phone] Reason for Visit * Reason Comments Medication Refill Encounter Details Date Type Department Care Team (Late Contact Info) Description 11/14/2024 Refill [facility] [address] [place] [phone] Bam Thomson MD [address] [place] [phone] [email or web address] Medication Refill Social History Tobacco Use Types [...] Description 04/05/2025 1:00 PM EDT Office Visit [facility] [address] [place] [address] Rafael Bentley DO [address] [place] [address] [email or web address] documented as of this encounter Visit Diagnoses Not on filedocumented in this encounter Care Teams Car Ferry Master Relationship Specialty Start Date End Date Anmol Quinteros DO [address] [place] [address] [address] [place] [address] PCP - General Internal Medicine 07/08/23 documented as of this encounter Additional Source Comments The information contained in this document represents components of the legal health record. It is not the complete legal health record.[facility]
--- OUTSIDE RECORDS SUMMARY | 2024-12-07 15:05 | XMS_ITS | Encounter Summary ---
Author Organization [facility] Address [phone] [facility] [place] [address] Care Team Providers Care Small Business Consultant Name Role Phone Anmol Quinteros DO Primary Care Provider [phone] Encounter Details Date Type Department Care Team (Late st Contact Info) Description 12/01/2024 Telephone [facility] [address] [place] [address] [address] [place] [address] Lucien Rao, FATBACK TRIMMER [address] [place] [address] [email or web address] Social History Tobacco Use Types Packs/Day Years [...] as of this encounter Progress Notes * Peg Coy RN - 12/05/2024 12:42 PM EST Pt informed and agreed * Lucien Rao CNP - 12/02/2024 5:01 PM EST Yeah sounds like she needs to stay on the bumex. * Peg Coy RN - 12/01/2024 11:46 AM EST Pt states her bp has been low 100's /50-60 which is the pts normal, going back to May last year She denies any lightheadedness or dizziness She states she feels weak at times She normally takes bumex 1 mg daily She took an extra one yesterday cause her wt was up 1 lb and she had some sob and belly swelling Her wt yesterday was 104 up from 103 Today 103.4 * Peg Coy RN - 12/01/2024 8:43 AM EST Images from the original note were not included. Bumex / low BP Received: Yesterday Lucien Roa CNP [place], Carey I got a fax message from patient PCP asking if she needs to continue on Bumex as she has unspecified soft blood pressure. I have never seen this patient and not a lot to go off of from SHANI's last note. Would you be able to follow up with patient and see how she is doing? Not sure if she needs to be seen here in office sooner than next appointment. -León documented in this encounter Plan of Treatment Upcoming Encounters Date Type Department Care Team (Late st Contact Info) Description 04/05/2025 1:00 PM EDT Office Visit [facility] [address] [place] [address] Rafael Bentley, [address] [place] [address] [email or web address] documented as of this encounter Visit Diagnoses Not on filedocumented in this encounter Care Teams Small Business Consultant Relationship Specialty Start Date End Date Anmol Quinteros DO [address] [place] [address] 18 [place] [address] PCP - General Internal Medicine 07/08/23 documented as of this encounter Additional Source Comments The information contained in this document represents components of the legal health record. It is not the complete legal health record.[facility]
--- OUTSIDE RECORDS SUMMARY | 2024-12-07 15:05 | XMS_ITS | Encounter Summary ---
Author Organization [facility] Address [phone] [place] [address] Care Team Providers Care Tile Mechanic Name Role Phone Anmol Quinteros DO Primary Care Provider [phone] Reason for Visit * Auth/Cert (Routine) Specialty Diagnoses / Procedures Referred By Cinthya alvarez Referred To Contact Referral ID Status Reason Start Date Expiration Date Visits Re quested Visits Authorized [id number] 1 1 Encounter Details Date Type Department Care Team (Late st Contact Info) Description 10/30/2024 1:30 PM EST Home Care Visit [facility] [address] [place] [address] Kymberly Ely, RN [address] [place] [address] [email or web address] SN OASIS START OF CARE (SOC) Social History Tobacco Use Types Packs/Day Years [...] Sign Reading Time Taken Comments Blood Pressure 110/72 10/30/2024 2:04 PM EST Pulse 84 10/30/2024 2:04 PM EST Temperature 36.8 ??C (98.2 ??F) 10/30/2024 2:04 PM ES T Respiratory Rate 18 10/30/2024 2:04 PM EST Oxygen Saturation 96% 10/30/2024 2:04 PM EST Inhaled Oxygen Concentration - - Weight - - Height - - Body Mass Index - - documented in this encounter Plan of Treatment Upcoming Encounters Date Type Department Care Team (Late st Contact Info) Description 04/05/2025 1:00 PM EDT Office Visit [facility] [address] [place] [address] [address] Rafael Bentley DO [address] [place] [phone] documented as of this encounter Visit Diagnoses Not on filedocumented in this encounter Home Health Visit - Care Plan Visit Details Visit Type -SN OASIS START O F CARE (SOC) Discipline -Snf Problems Problem Description Start Date Status Goals Interve ntions HH - Telehealth/Virtual Care Disciplines: All Active Home Health Disciplines 10/30/2024 Active 1 goal linked to scheduled/documen isabelle intervention 1 goal intervention scheduled/document ed in this visit HH - Medication Management Disciplines: All Active Home Health Disciplines 10/30/2024 Active 1 goal linked to scheduled/documen isabelle intervention 2 goal interventions scheduled/document ed in this visit HH - Focus of Care and Teaching Disciplines: All Active Home Health Disciplines w/RD 10/30/2024 Active 1 goal linked to scheduled/documen isabelle intervention 1 goal intervention scheduled/document ed in this visit HH - Emergency Planning - Knowledge of Disciplines: All Active Home Health Disciplines 10/30/2024 Active 1 goal linked to scheduled/documen isabelle intervention 2 goal interventions scheduled/document ed in this visit HH - Standard of Care Disciplines: All Active Home Health Disciplines 10/30/2024 Active 1 goal linked to scheduled/documen isabelle intervention 2 goal interventions scheduled/document ed in this visit HH - Cardiovascular Function - Impaired Disciplines: All Active Home Health Disciplines 10/31/2024 Active 1 goal linked to scheduled/documen isabelle intervention HH - Urinary Elimination - Impaired Disciplines: All Active Home Health Disciplines 10/31/2024 Active 1 goal linked to scheduled/documen isabelle intervention Goals Goal Associated Problem Outcome Goal Met? Visit Notes HH - Telehealth visits along with in-person home visits will be utilized when appropriate to achieve optimal wellness and home safety Description: Telehealth visits along with in-person home visits will be utilized when appropriate to achieve optimal wellness and home safety related to assessment. HH - Telehealth/Virtual Care Completed Yes HH - Safe medication management, avoid unnecessary [...] - Standard of Care No HH - Demonstrate/verbalize management of cardiac disease, treatments, and s/s of complications HH - Cardiovascular Function - Impaired Progressing No HH - Demonstrate/verbalize management of genitourinary disease, treatment, and s/s of complication HH - Urinary Elimination - Impaired Progressing No Interventions Intervention Associated Problem/Goal Status Variance Visit Notes HH - Assess the patient's access/technology, monitoring device availability, cognitive, mental, physical ability, and willingness to effectively participate in telehealth care Problem:HH - Telehealth/Virtual Care Goal:HH - Telehealth visits along with in-person home visits will be utilized when appropriate to achieve optimal wellness and home safety Completed The patient has: 1. Reliable Wi-Fi/Internet access: Yes 2. Patient [place]: Declined 3. An active e-mail address: Yes 4. The following device(s): iPhone and Tablet 5. The following monitoring device(s): Blood Pressure Cuff, pulse oximeter and does not need training 6. The patient has the cognitive, mental, and physical ability to participate in Telehealth Care. 7. The patient is willing to participate. - I/E medication management: administration, purpose, dosages, [...] and collaboration to achieve patient goals Completed Patient referred to homecare services after hospitalization 2nd to weakness with dx of covid and UTI. PMH: HFrEF s/p dual chamber pacemaker, HTN, A-fib on Eliquis. Pt resides with her granddaughter in single family home in her own small in-law apartment. Her daughter is a RN and lives nearby and provides daily support. Pt is alert and oriented x 4, she moved from [place] to [place] to be closer to family. Pt reports frequent UTI's about monthly and she has an appt with urology in November as she reports she was dx'd with some abnormality in her bladder a few years ago but her incontinence and UTI's are much more frequent now. She reports getting SOB when walking to kitchen and struggles with stairs. Daughter is planning on installing a stair lift as living space is on 2nd floor requiring a full set of stairs for leaving the home. Pt reports following CHF protocol/ daily weights. Bumex is on hold until after ABX are finished tomorrow. Today denies s/sx of UTI, reviewed toileting hygiene and double voiding/timed voiding strategies. Also suggested installing bidet for additional hygiene. Ed provided on breathing exercises and respiratory hygiene as well as cleansing of IS mouth piece daily with 10% bleach and air drying to prevent further re-infection. Verbalizes understanding. Oriented to VNA services. Pt made aware of 20% co-pay for VNA visits and agreeable. Requesting Identified skills to be provided and taught: CVP assessment, teach pulmonary hygiene and UTI prevention The identified person that we will be teaching is patient Other disciplines ordered to assist patient in meeting goals: PT- will obtain orders for MOVABLE BULKHEAD INSTALLER and OT eval Anticipated number of visits to meet goals: 3-4 Call placed to PCP on Wednesday 10/31 attempted both option 4 for VNA and [address]er operator twice but unable to leave message- directions on both lines indicate to call back at a later time. Unable to inform of VNA admission and obtain orders for OT/MOVABLE BULKHEAD INSTALLER HH - I/E management of care in [...] an emergency related situation. Completed HH - Assess vital signs, pulse [...] Completed documented in this encounter Care Teams Tile Mechanic Relationship Specialty Start Date End Date Anmol Quinteros DO [address] [place] [phone] PCP - General Internal Medicine 07/08/23 documented as of this encounter Additional Source Comments The information contained in this document represents components of the legal health record. It is not the complete legal health record.[facility]
--- OUTSIDE RECORDS SUMMARY | 2024-12-07 15:05 | XMS_ITS | Encounter Summary ---
Author Organization [facility] Address [phone] [place] [address] Care Team Providers Care Early Learning Teacher Name Role Phone Anmol Quinteros DO Primary Care Provider [phone] Reason for Visit * Auth/Cert (Routine) Specialty Diagnoses / Procedures Referred By Cinthya alvarez Referred To Contact Referral ID Status Reason Start Date Expiration Date Visits Re quested Visits Authorized [id number] 1 1 Encounter Details Date Type Department Care Team (Late st Contact Info) Description 11/10/2024 12:30 PM EST Home Care Visit [facility] [address] [place] [address] Lyric Pierre, PT [address] [place] [address] [email or web address] PT EVALUATION Social History Tobacco Use Types Packs/Day Years [...] Sign Reading Time Taken Comments Blood Pressure 100/60 11/10/2024 1:03 PM EST Pulse 84 11/10/2024 1:03 PM EST Temperature 36.3 ??C (97.4 ??F) 11/10/2024 1:03 PM ES T Respiratory Rate - - Oxygen Saturation 97% 11/10/2024 1:03 PM EST Inhaled Oxygen Concentration - - Weight - - Height - - Body Mass Index - - documented in this encounter Plan of Treatment Upcoming Encounters Date Type Department Care Team (Late st Contact Info) Description 04/05/2025 1:00 PM EDT Office Visit [facility] [address] [place] [address] [address] [place] [address] Rafael Bentley DO [address] [place] [address] documented as of this encounter Visit Diagnoses Not on filedocumented in this encounter Home Health Visit - Care Plan Visit Details Visit Type -PT EVALUATION Discipline -Physical Therapy Problems Problem Description Start [...] Clinical Focus this Visit & Instruction Provided: Patient referred to homecare services after hospitalization 2nd to [facility] with dx of covid and UTI. PMH: HFrEF s/p dual chamber pacemaker, HTN, A-fib on Eliquis. Pt resides with her granddaughter in single family home in her own small in-law apartment. Her daughter is a RN and lives nearby and provides daily support. Pt is alert and oriented x 4, she moved from [place] to [place] to be closer to family. Pt reports [...] drying to prevent further re-infection. Verbalizes understanding. PLOF: about 2 months ago, pt was independent with mobility; she was going down steep driveway to get mail, using stairs to get into home. sometimes went for walk in [place] in back of home. She got weaker with series of UTIs. she was indepdendent with ADLs. She was limited by some SOB wiht CHF. Went to [place], took trip to [place]. falls: 2 years ago in [place] Environment: pt lives in in law apt in her grand daughters home. walk in shower. flight of stairs to enter home with railings. daugher lives close by and involved in care. pt goals: I want to be able to be up longer, do some things in the kitchen Clinical summary: 89 year old female referred for home PT services s/p hospitalization 10/25-10/28 [facility] 2nd to weakness with dx of covid and UTI. PMH: HFrEF s/p dual chamber pacemaker, chronic CHF, HTN, A-fib on Eliquis, frequent UTIs with bladder abnormality. Prior to this episode pt is ambulating without device in home, she had been experiencing increasing weakness since august due to UTIs and CHF. She had stopped walking to mailbox and not going out as much. She was independent with ADLS. pt lives with her granddaughters family and her daughter Kirstie lives nearby and is very involved in her care, she is retired nurse. pt has in law apartment; There is a flight of stairs to enter home with railing. Today, pt ambulating without device in home but gets easily SOB, must use slow pace. 02 sat 91-96% with activity, HR rises 20 bpm walking short distances. Tinetti score is 21/28, sit to stand test 6 reps placing her at moderate fall risks. She was able to tandem stance without support 10 seconds. Strength is WFL. Daughter Kirstie present for evaluation and reports she is supervising pt's shower, checking on her frequently. pt is oriented and reports she is taking her BP and weighing herself daily. Pt will benefit from home PT services 2w3 to increase overall strength, stamina, gait on stairs with monitor of vital signs. TC to PCP office, obtained verbal orders for 2w3 home PT. Instruction Provided to: patient and daughter Response to Instruction/Teaching: Is fully able to teach back topics as evidenced by good understanding of home PT services Plan for Next Visit Specific Focus & Education Needed: strengthening, balance, gait New Orders: add home PT 2w3 Updated Discharge Plan: in 3 weeks HH - I/E management of care in [...] homecare Scheduled HH - Assess skin integrity Problem:HH - Standard of Care Goal:HH - Achieve care management for a safe to home/community discharge from homecare Scheduled documented in this encounter Care Teams Early Learning Teacher Relationship Specialty Start Date End Date Anmol Quinteros DO [address] [place] [address] PCP - General Internal Medicine 07/08/23 documented as of this encounter Additional Source Comments The information contained in this document represents components of the legal health record. It is not the complete legal health record.[facility]
== END 2024-12-07 13:54 | disposition home or self-care (01) ==
PROVIDERS: PCP Internal Medicine; Visit Provider Nurse Practitioner Family
DX: Z13.9 Encounter for screening, unspecified (principal); N39.0 Urinary tract infection, site not specified
CPT/HCPCS: 99204

== ENCOUNTER 2024-12-07 12:58 | Outpatient (REF) | payer MEDICARE, SELFPAY ==
--- OUTSIDE RECORDS SUMMARY | 2024-12-07 15:41 | XMS_ITS | Encounter Summary ---
Author Organization [facility] Address [phone] [place] [address] Care Team Providers Care Warehouse Distribution Associate Name Role Phone Anmol Quinteros DO Primary Care Provider [phone] Reason for Visit * Auth/Cert (Routine) Specialty Diagnoses / Procedures Referred By Cinthya alvarez Referred To Contact Referral ID Status Reason Start Date Expiration Date Visits Re quested Visits Authorized [id number] 1 1 Encounter Details Date Type Department Care Team (Late st Contact Info) Description 12/02/2024 3:30 PM EST Home Care Visit [facility] [address] [place] [address] Lyric Pierre, PT [address] [place] [address] [email or web address] PT OASIS DISCHARGE VISIT Social History Tobacco [...] Description 04/05/2025 1:00 PM EDT Office Visit [facility] [address] [place] [address] Dr [address]acy [address] [place] [address] Rafael Bentley DO [address] [place] [address] documented as of this encounter Visit Diagnoses [...] to help manage. SN has discharged from [facility] 11/16/24. pt is supported by her daughter who is RN. There is no further need for skilled home PT services at this time. notified of discharge from home services today. Instruction Provided to: patient Response to Instruction/Teaching: Is fully able to teach back topics as evidenced by good understanding of HEp and home safety, discharge from [facility] today Plan for Next Visit Specific Focus [...] minute documented in this encounter Care Teams Warehouse Distribution Associate Relationship Specialty Start Date End Date BayronBlanca byersno [address] [place] [phone] PCP - General Internal Medicine 07/08/23 documented as of this encounter Additional Source Comments The information contained in this document represents components of the legal health record. It is not the complete legal health record.[facility]
--- OUTSIDE RECORDS SUMMARY | 2024-12-07 15:41 | XMS_ITS | Clinical Summary ---
Author Organization [facility] Address [phone] [place] [address] Care Team Providers Care Legal Clerk Name Role Phone Anmol Quinteros DO Primary Care Provider [phone] Allergies Active Allergy Reactions Criticality Noted Date [...] to 30% from an old anterior wall NV Assessment & Plan (07/26/2024 1:37 PM EDT): [...] 3:30 PM EST Home Care Visit [facility] [address] [place] [address] Lyric Pierre, PT PT OASIS DISCHARGE VISIT 12/01/2024 Telephone [facility] [address] [place] [address] Dr [address]acy [address] [place] [address] Lucien Rao, SRINI 11/30/2024 Home Care Visit [facility] [address] [place] [phone] Magda Huerta, SALOME TELEPHONE ENCOUNTER 11/28/2024 Orders Only [facility] [address] [place] [address] Dustin Starks MD 11/25/2024 Documentation [facility] [address] [place] [address] Margot Whitaker COPILOT-HF 11/22/2024 12:15 PM EST Home Care Visit [facility] [address] [place] [phone] Magda Huerta, SALOME HEAVY MACHINERY OPERATOR HOME VISIT 11/17/2024 2:15 PM EST Home Care Visit [facility] [address] [place] [address] Magda Huerta, SALOME HEAVY MACHINERY OPERATOR HOME VISIT 11/16/2024 10:30 AM EST Home Care Visit [facility] [address] [place] [phone] Chauncey Calloway, RASTA SN DISCIPLINE DISCHARGE VISIT 11/15/2024 2:15 PM EST Home Care Visit [facility] [address] [place] [phone] Magda Huerta, HEAVY MACHINERY OPERATOR HEAVY MACHINERY OPERATOR HOME VISIT 11/14/2024 Refill [facility] [address] [place] [address] Bam Thomson MD Medication Refill 11/10/2024 12:30 PM EST Home Care Visit [facility] [address] [place] [address] Lyric Pierre, PT PT EVALUATION 11/08/2024 10:00 AM EST Home Care Visit [facility] [address] [place] [address] Kymberly Ely, RN SN PRECEPTOR CO-VISIT 11/08/2024 10:00 AM EST Home Care Visit [facility] [address] [place] [address] Chauncey Calloway RN SN HOME VISIT 11/05/2024 4:00 AM EST Home Care Visit [facility] [address] [place] [address] Humera Correa, RASTA SN HOME VISIT 11/04/2024 Home Care Visit [facility] [address] [place] [address] Kymberly Ely, RN CASE COMMUNICATION 11/03/2024 Home Care Visit [facility] [address] [place] [address] Ariana Chen, OT TELEPHONE ENCOUNTER 10/31/2024 Plan of Care Documentation [facility] [address] [place] [address] 10/30/2024 1:30 PM EST Home Care Visit [facility] [address] [place] [address] Kymberly Ely, RN SN OASIS START OF CARE (SOC) 10/28/2024 Orders Only [facility] [address] [place] [address] Homehealth, Nicki Limon MD 10/19/2024 Telephone [facility] [address] [place] [address] Brinda Dawson 10/15/2024 Refill [facility] [address] [place] [address] Bereket Antoine MD Medication Refill 09/21/2024 Telephone [facility] [address] [place] [address] Rafael Bentley DO 09/13/2024 1:00 PM EST Office Visit [facility] [address] [place] [address] Rafael Bentley DO Systolic congestive heart failure, unspecified HF chronicity (Primary Dx); Benign essential hypertension; Pure hypercholesterolemi a; Presence of permanent cardiac pacemaker 09/08/2024 11:27 AM EDT - 09/08/2024 11:59 PM EDT Hospital Encounter Non-Invasive Cardiology [address] [place] [address] Rafael Bentley DO Discharge Disposition: Home or Self Care 09/08/2024 11:27 AM EDT - 09/08/2024 11:59 PM EDT Hospital Encounter Echo Lab [address] [place] [address] Rafael Bentley DO Discharge Disposition: Home or Self Care 07/26/2024 Procedure Pass Echo Lab [address] [place] [address] from Last 3 Months Social History Tobacco [...] Description 04/05/2025 1:00 PM EDT Office Visit [facility] [address] [place] [address] [address] [place] [address] Rafael Bentley, [address] [place] [phone] [email or web address] Health Maintenance Due Date Last Done Comments [...] in SPECT format, reconstructed tomographically and compared [id number] in short axis, horizontal long axis and [...] of Tc99m Sestamibi by Jose Fountain, the licensed nuclear operator. 1. EKG - Baseline EKG showed V [...] EDT) SODIUM 139 133 - 146 mmol/L [facility] CHLORIDE 97 96 - 108 mmol/L [facility] POTASSIUM 4.4 3.3 - 5.1 mmol/L [facility] CO2 29 21 - 35 mmol/L [facility] BUN 33(H) 6 - 19 mg/dL [facility] CREATININE 1.20 0.5 - 1.5 mg/dL [facility] GLUCOSE 78 70 - 99 mg/dL [facility] CALCIUM 9.8 8.4 - 10.3 mg/dL [facility] EGFR 44(L) >59 mL/min/1.7 3m2 [facility] Comment:Estimated glomerular filtration rate calculated using the CKD-EPI refit equation. ANION GAP 17 10 - 20 mmol/L [facility] Blood 08/01/2024 12:1 8 PM EDT 08/01/2024 12:22 PM EDT Holly Sparks DNP LAB BLOOD ORDERABL ES [facility] [address] [place] [address] from Last 3 Months or Most Recently Relevant to Health Maintenance Advance Directives Documents on File Type Date Recorded Patient Gun Number Expl [email or web address] ADAME 11/01/2024 Care Teams Legal Clerk Relationship Specialty Start Date End Date BayronBlanca byersno [address] [place] [address] PCP - General Internal Medicine 07/08/23 Additional Source Comments The information contained in this document represents components of the legal health record. It is not the complete legal health record.[facility]
--- OUTSIDE RECORDS SUMMARY | 2024-12-07 15:41 | XMS_ITS | Encounter Summary ---
Author Organization [facility] Address [phone] [place] [address] Care Team Providers Care Greeting Card Maker Name Role Phone Anmol Quinteros DO Primary Care Provider [phone] Encounter Details Date Type Department Care Team (Late st Contact Info) Description 07/26/2024 Procedure Pass Echo [facility] [place] [place], [place] [phone] Social History Tobacco Use Types Packs/Day Years [...] Description 04/05/2025 1:00 PM EDT Office Visit [facility] [address] [place] [address] [facility] [place] [address] Rafael Bentley DO [address] [place] [address] documented as of this encounter Visit Diagnoses Not on filedocumented in this encounter Care Teams Greeting Card Maker Relationship Specialty Start Date End Date Anmol Quinteros DO [address] [place] [address] [address] [place] [address] PCP - General Internal Medicine 07/08/23 documented as of this encounter Additional Source Comments The information contained in this document represents components of the legal health record. It is not the complete legal health record.[facility]
--- OUTSIDE RECORDS SUMMARY | 2024-12-07 15:41 | XMS_ITS | Encounter Summary ---
Author Organization [facility] Address [address] [place] [address] Care Team Providers Care Broke Handler Name Role Phone Anmol Quinteros DO Primary Care Provider [phone] Encounter Details Date Type Department Care Team (Latest Contact Info) Description 11/30/2024 3:59 PM EST - 11/30/2024 11:59 PM EST Hospital Encounter [facility] Xray [address] [place] [address] CHF (congestive heart failure), NYHA [...] above consistent with COPD. Mild cardiomegaly. Code 75502 -------- FINAL REPORT -------- Dictated By: Tyron Moore Dictated Date: 12/01/2024 07:58 ET Assigned Physician: Tyron Moore Reviewed and Electronically Signed By: Tyron Moore Signed Date: 12/01/2024 07:59 ET Workstation ID: [id number] Transcribed By: Self Edit Transcribed Date: 12/01/2024 [...] as above consistentwith COPD. Mild cardiomegaly. Code 94489 -------- FINAL REPORT -------- Dictated By: Tyron Moore Dictated Date: 12/01/2024 07:58 ET Assigned Physician: Tyron Moore Reviewed and Electronically Signed By: Tyron Moore Signed Date: 12/01/2024 07:59 ET Workstation ID: [id number] Transcribed By: Self Edit Transcribed Date: 12/01/2024 07:58 ET Anmol Quinteros DO IMG XR PROCEDURES documented in this encounter Visit Diagnoses Diagnosis CHF (congestive heart failure), NYHA class I, acute on chronic, combined (CMS/HCC) documented in this encounter Care Teams Broke Handler Relationship Specialty Start Date End Date Anmol Quinteros DO [address] [place] [phone] PCP - General Internal Medicine 11/30/24 documented as of this encounter
--- OUTSIDE RECORDS SUMMARY | 2024-12-07 15:41 | XMS_ITS | Clinical Summary ---
Author Organization [facility] Address [address] [place] [phone] Phone Care Team Providers Care Garment Turner Name Role Phone LouieAnmol leary Primary Care Provider [phone] Encounters Date Type Department Care Team Description 11/30/2024 3:59 PM EST - 11/30/2024 11:59 PM EST Hospital Encounter [facility] Xray [address] [place] [address] CHF (congestive heart failure), NYHA [...] above consistent with COPD. Mild cardiomegaly. Code 46027 -------- FINAL REPORT -------- Dictated By: Tyron Moore Dictated Date: 12/01/2024 07:58 ET Assigned Physician: Tyron Moore Reviewed and Electronically Signed By: Tyron Moore Signed Date: 12/01/2024 07:59 ET Workstation ID: [id number] Transcribed By: Self Edit Transcribed Date: 12/01/2024 [...] as above consistentwith COPD. Mild cardiomegaly. Code 73764 -------- FINAL REPORT -------- Dictated By: Tyron Moore Dictated Date: 12/01/2024 07:58 ET Assigned Physician: Tyron Moore Reviewed and Electronically Signed By: Tyron Moore Signed Date: 12/01/2024 07:59 ET Workstation ID: [id number] Transcribed By: Self Edit Transcribed Date: 12/01/2024 07:58 ET Anmol Mercgibran DO IMG XR PROCEDURES * (ABNORMAL) CBC auto differential (11/30/2024 3:07 PM EST) [facility] WBC 8.4 4.8 - 10.8 K/mcL LAB HEMETOLOGY METHOD 11/30/2024 7:55 PM [facility] RBC 4.60 3.80 - 4.80 M/mcL LAB HEMETOLOGY METHOD 11/30/2024 7:55 PM [facility] Hemoglobin 13.5 11.5 - 16.0 g/dL LAB HEMETOLOGY METHOD 11/30/2024 7:55 PM [facility] Hematocrit 41.4 35.0 - 47.0 % LAB HEMETOLOGY METHOD 11/30/2024 7:55 PM [facility] MCV 89.6 79.0 - 98.0 FL LAB HEMETOLOGY METHOD 11/30/2024 7:55 PM [facility] MCH 29.2 27.0 - 32.0 pcg LAB HEMETOLOGY METHOD 11/30/2024 7:55 PM [facility] MCHC 32.6 32.0 - 37.0 g/dL LAB HEMETOLOGY METHOD 11/30/2024 7:55 PM [facility] RDW 14.9 11.0 - 15.0 % LAB HEMETOLOGY METHOD 11/30/2024 7:55 PM [facility] Platelets 197 130 - 400 K/mcL LAB HEMETOLOGY METHOD 11/30/2024 7:55 PM [facility] MPV 11.3(H) 7.0 - 11.0 FL LAB HEMETOLOGY METHOD 11/30/2024 7:55 PM [facility] NRBC 0.0 <1.0 % LAB HEMETOLOGY METHOD 11/30/2024 7:55 PM [facility] NRBC Absolute 0.00 <0.10 K/mcL LAB HEMETOLOGY METHOD 11/30/2024 7:55 PM [facility] Neutrophils Relative 71.9 % LAB HEMETOLOGY METHOD 11/30/2024 7:55 PM [facility] Lymphocytes Relative 17.9 % LAB HEMETOLOGY METHOD 11/30/2024 7:55 PM [facility] Monocytes Relative 7.2 % LAB HEMETOLOGY METHOD 11/30/2024 7:55 PM [facility] Eosinophils Relative 1.9 % LAB HEMETOLOGY METHOD 11/30/2024 7:55 PM [facility] Basophils Relative 0.7 % LAB HEMETOLOGY METHOD 11/30/2024 7:55 PM [facility] Immature Granulocytes Relative 0.4 % LAB HEMETOLOGY METHOD 11/30/2024 7:55 PM [facility] Neutrophils Absolute 6.04 1.50 - 7.00 K/mcL LAB HEMETOLOGY METHOD 11/30/2024 7:55 PM [facility] Lymphocytes Absolute 1.50 1.00 - 5.00 K/mcL LAB HEMETOLOGY METHOD 11/30/2024 7:55 PM [facility] Monocytes Absolute 0.60 0.20 - 1.00 K/mcL LAB HEMETOLOGY METHOD 11/30/2024 7:55 PM [facility] Eosinophils Absolute 0.16 0.00 - 0.50 K/mcL LAB HEMETOLOGY METHOD 11/30/2024 7:55 PM [facility] Basophils Absolute 0.06 0.00 - 0.20 K/mcL LAB HEMETOLOGY METHOD 11/30/2024 7:[address] [facility] Immature Granulocytes Absolute 0.03 0.00 - 0.03 K/mcL LAB HEMETOLOGY METHOD 11/30/2024 7:55 PM [facility] Blood Venous blood specimen / Unknown Venipuncture / Unknown 11/30/2024 3:07 PM EST 11/30/2024 3:07 PM EST [facility] [employer] LAB BLOOD ORDERABLES Performing Organization Address City/[facility]/ZIP Co de Phone Number [facility] [address] [place] [address], * (ABNORMAL) B-type natriuretic peptide (11/30/2024 3:07 PM EST) BNP 839(H) <=100 pcg/mL LAB CHEMISTRY METHOD 11/30/2024 8:08 PM [facility] Blood Venous blood specimen / Unknown Venipuncture / Unknown 11/30/2024 3:07 PM EST 11/30/2024 3:07 PM EST [facility] LAB BLOOD ORDERABLES Performing Organization Address [facility]/ZIP Co de Phone Number [facility] [address] [place] [address], * (ABNORMAL) Comprehensive metabolic panel (11/30/2024 3:07 PM EST) Sodium 135 133 - 145 mmol/L LAB CHEMISTRY METHOD 11/30/2024 8:13 PM [facility] Potassium 4.3 3.5 - 5.5 mmol/L LAB CHEMISTRY METHOD 11/30/2024 8:13 PM [facility] Chloride 103 96 - 110 mmol/L LAB CHEMISTRY METHOD 11/30/2024 8:[address] [facility] CO2 27 21 - 32 mmol/L LAB CHEMISTRY METHOD 11/30/2024 8:13 PM [facility] Anion Gap 5 3 - 11 LAB CHEMISTRY METHOD 11/30/2024 8:13 PM [facility] Glucose 113(H) 70 - 100 mg/dL LAB CHEMISTRY METHOD 11/30/2024 8:13 PM [facility] BUN 20 5 - 25 mg/dL LAB CHEMISTRY METHOD 11/30/2024 8:13 PM [facility] Creatinine 1.26(H) 0.50 - 1.10 mg/dL LAB CHEMISTRY METHOD 11/30/2024 8:13 PM [facility] eGFR 41(L) >=60 mL/min/1. 73m2 LAB CHEMISTRY METHOD 11/30/2024 8:13 PM [facility] Comment:Calculation based on the??Chronic Kidney Disease Epidemiology Collaboration (CKD-EPI) equation refit??without adjustment for race. BUN/Creatinine Ratio 15.9 LAB CHEMISTRY METHOD 11/30/2024 8:13 PM [facility] Calcium 10.4 8.5 - 10.5 mg/dL LAB CHEMISTRY METHOD 11/30/2024 8:13 PM [facility] AST (SGOT) 34 10 - 42 unit/L LAB CHEMISTRY METHOD 11/30/2024 8:13 PM [facility] ALT (SGPT) 22 10 - 60 unit/L LAB CHEMISTRY METHOD 11/30/2024 8:13 PM [facility] Alkaline Phosphatase 65 42 - 121 unit/L LAB CHEMISTRY METHOD 11/30/2024 8:13 PM [facility] Total Protein 7.7 6.0 - 8.0 g/dL LAB CHEMISTRY METHOD 11/30/2024 8:13 PM [facility] Albumin 4.3 3.2 - 5.0 g/dL LAB CHEMISTRY METHOD 11/30/2024 8:13 PM [facility] Total Bilirubin 1.0 0.0 - 1.4 mg/dL LAB CHEMISTRY METHOD 11/30/2024 8:13 PM EST [facility] Blood Venous blood specimen / Unknown Venipuncture / Unknown 11/30/2024 3:07 PM EST 11/30/2024 3:07 PM EST Haque Brennan [employer] LAB BLOOD ORDERABLES [facility] ([facility] [address] [place] [address], from Last 3 Months Care Teams Garment Turner Relationship Specialty Start Date End Date Anmol Quinteros DO [address] [place] [phone] PCP - General Internal Medicine 11/30/24
--- OUTSIDE RECORDS SUMMARY | 2024-12-07 15:41 | XMS_ITS | Encounter Summary ---
Author Organization [facility] Address [phone] [place] [address] Care Team Providers Care Programming Specialist Name Role Phone Anmol Quinteros DO Primary Care Provider [phone] Reason for Visit * Auth/Cert (Routine) Specialty Diagnoses / Procedures Referred By Cinthya alvarez Referred To Contact Referral ID Status Reason Start Date Expiration Date Visits Re quested Visits Authorized [id number] 1 1 Encounter Details Date Type Department Care Team (Late st Contact Info) Description 10/30/2024 1:30 PM EST Home Care Visit [facility] [address] [place] [address] Kymberly lEy, RN [address] [place] [address] [email or web address] SN OASIS START OF CARE (SOC) Social [...] Description 04/05/2025 1:00 PM EDT Office Visit [facility] [address] [place] [address] [address] Rafael Bentley DO [address] [place] [address] documented as of this encounter Visit Diagnoses Not on filedocumented in this encounter Home Health Visit - Care Plan Visit Details Visit Type -SN OASIS START O F CARE (SOC) Discipline -Long Term Problems Problem Description Start Date Status Goals [...] 1. Reliable Wi-Fi/Internet access: Yes 2. Patient [place]: Declined 3. An active e-mail address: Yes [...] and oriented x 4, she moved from [place] to [place] to be closer to family. Pt reports [...] meeting goals: PT- will obtain orders for SENIOR CONTROLS TECHNICIAN and OT eval Anticipated number of visits to meet goals: 3-4 Call placed to PCP on Wednesday 10/31 attempted both option 4 for VNA and 0 for asphalt roller operator twice but unable to leave message- directions on both lines indicate to call back at a later time. Unable to inform of VNA admission and obtain orders for OT/SENIOR CONTROLS TECHNICIAN HH - I/E management of care in [...] Completed documented in this encounter Care Teams Programming Specialist Relationship Specialty Start Date End Date Anmol Quinteros DO [address] [place] [address] PCP - General Internal Medicine 07/08/23 documented as of this encounter Additional Source Comments The information contained in this document represents components of the legal health record. It is not the complete legal health record.[facility]
--- OUTSIDE RECORDS SUMMARY | 2024-12-07 15:41 | XMS_ITS | Encounter Summary ---
Author Organization [facility] Address [phone] [place] [address] Care Team Providers Care Fashion Marketer Name Role Phone Anmol Quinteros DO Primary Care Provider [phone] Reason for Visit * Reason Comments Medication Refill Encounter Details Date Type Department Care Team (Late Contact Info) Description 10/15/2024 Refill [facility] [address] [place] [address] Dr Stacy [address] [place] [address] Bereket Antoine MD [address] [place] [phone] [email or web address] Medication Refill Social History Tobacco Use Types [...] Description 04/05/2025 1:00 PM EDT Office Visit [facility] [address] [place] [address] Dr Stacy [address] [place] [address] Rafael Bentley DO [address] [place] [address] [email or web address] documented as of this encounter Visit Diagnoses Not on filedocumented in this encounter Care Teams Fashion Marketer Relationship Specialty Start Date End Date Aldair DO Anmol [address] [place] [address] 18 [place] [address] PCP - General Internal Medicine 07/08/23 documented as of this encounter Additional Source Comments The information contained in this document represents components of the legal health record. It is not the complete legal health record.[facility]
--- OUTSIDE RECORDS SUMMARY | 2024-12-07 15:41 | XMS_ITS | Encounter Summary ---
Author Organization [facility] Address [phone] [place] [address] Care Team Providers Care Deputy Chief Executive Name Role Phone Pcp, Unknown Primary Care Provider Anmol Middleton DO Primary Care Provider Encounter Details Date Type Department Care Team (Late st Contact Info) Description 06/22/2023 Procedure Pass [facility] [place] [address] Social History Tobacco Use Types Packs/Day Years [...] Description 04/05/2025 1:00 PM EDT Office Visit [facility] [address] [place] [address] [place] [address] Rafael Bentley DO [address] [place] [address] documented as of this encounter Visit Diagnoses Not on filedocumented in this encounter Care Teams Deputy Chief Executive Relationship Specialty Start Date End Date Pcp, Unknown PCP - General 05/20/23 07/07/23 Anmol Quinteros DO [address] [place] [address] 18 [place] [address] PCP - General Internal Medicine 07/08/23 documented as of this encounter Additional Source Comments The information contained in this document represents components of the legal health record. It is not the complete legal health record.[facility]
--- OUTSIDE RECORDS SUMMARY | 2024-12-07 15:42 | XMS_ITS | Encounter Summary ---
Author Organization [facility] Address [phone] [place] [address] Care Team Providers Care Company Laundry Worker Name Role Phone Anmol Quinteros DO Primary Care Provider Encounter Details Date Type Department Care Team (Late st Contact Info) Description 10/29/2023 Procedure Pass Non-Invasive Cardiology [address] [place] [address] Social History Tobacco Use Types Packs/Day Years [...] Description 04/05/2025 1:00 PM EDT Office Visit [facility] [address] [place] [address] [address] Rafael Bentley DO [address] [place] [address] documented as of this encounter Visit Diagnoses Not on filedocumented in this encounter Care Teams Company Laundry Worker Relationship Specialty Start Date End Date Anmol Quinteros DO [address] [place] [address] 18 [place] [address] PCP - General Internal Medicine 07/08/23 documented as of this encounter Additional Source Comments The information contained in this document represents components of the legal health record. It is not the complete legal health record.[facility]
--- OUTSIDE RECORDS SUMMARY | 2024-12-07 15:42 | XMS_ITS | Encounter Summary ---
Author Organization [facility] Address [phone] [facility] [place] [address] Care Team Providers Care Continuous Miner Operator Name Role Phone Anmol Quinteros DO Primary Care Provider [phone] Encounter Details Date Type Department Care Team (Late st Contact Info) Description 12/01/2024 Telephone [facility] [address] [place] [address] Dr Stacy [address] [place] [address] Lucien Rao, GEOTHERMAL HVAC TECHNICIAN [address] [place] [address] [email or web address] Social History Tobacco Use Types Packs/Day Years [...] Bumex / low BP Received: Yesterday Lucien Rao CNP [place], Carey I got a fax [...] Description 04/05/2025 1:00 PM EDT Office Visit [facility] Adriana Stacy [address] [place] [address] Rafael Bentley, [address] [place] [address] [email or web address] documented as of this encounter Visit Diagnoses Not on filedocumented in this encounter Care Teams Continuous Miner Operator Relationship Specialty Start Date End Date Anmol Quinteros DO [address] [place] [address] 18 [place] [address] PCP - General Internal Medicine 07/08/23 documented as of this encounter Additional Source Comments The information contained in this document represents components of the legal health record. It is not the complete legal health record.[facility]
--- OUTSIDE RECORDS SUMMARY | 2024-12-07 15:42 | XMS_ITS | Encounter Summary ---
Author Organization [facility] Address [phone] [place] [address] Care Team Providers Care Parts Room Assistant Name Role Phone Anmol Quinteros DO Primary Care Provider Reason for Visit * Auth/Cert (Routine) Specialty Diagnoses / Procedures Referred By Cinthya alvarez Referred To Contact Referral ID Status Reason Start Date Expiration Date Visits Re quested Visits Authorized [id number] 1 1 Encounter Details Date Type Department Care Team (Late st Contact Info) Description 11/15/2024 2:15 PM EST Home Care Visit [facility] [address] [place] [phone] Magda Huerta, ONLINE CONTENT DEVELOPER [address] [place] [address] [email or web address] ONLINE CONTENT DEVELOPER HOME VISIT Social History Tobacco Use Types [...] Description 04/05/2025 1:00 PM EDT Office Visit [facility] [address] [place] [address] Dr Stacy [address] [place] [address] Rafael Bentley DO [address] [place] [address] documented as of this encounter Visit Diagnoses Not on filedocumented in this encounter Home Health Visit - Care Plan Visit Details Visit Type -ONLINE CONTENT DEVELOPER HOME VISIT Discipline -Physical Therapy Problems Problem [...] Completed documented in this encounter Care Teams Parts Room Assistant Relationship Specialty Start Date End Date Anmol Quinteros DO [address] [place] [address] 18 [place] [address] PCP - General Internal Medicine 07/08/23 documented as of this encounter Additional Source Comments The information contained in this document represents components of the legal health record. It is not the complete legal health record.[facility]
--- OUTSIDE RECORDS SUMMARY | 2024-12-07 15:42 | XMS_ITS | Encounter Summary ---
Author Organization [facility] Address [phone] [place] [address] Care Team Providers Care Rn Internal Medicine Name Role Phone Anmol Quinteros DO Primary Care Provider [phone] Reason for Visit * Auth/Cert (Routine) Specialty Diagnoses / Procedures Referred By Cinthya alvarez Referred To Contact Referral ID Status Reason Start Date Expiration Date Visits Re quested Visits Authorized [id number] 1 1 Encounter Details Date Type Department Care Team (Late st Contact Info) Description 11/30/2024 Home Care Visit [facility] [address] [place] [address] Magda Huerta, [facility] [address] [place] [address] [email or web address] TELEPHONE ENCOUNTER Social History Tobacco Use Types [...] Description 04/05/2025 1:00 PM EDT Office Visit [facility] [address] [place] [address] Rafael Bentley DO [address] [place] [address] [email or web address] documented as of this encounter Visit Diagnoses Not on filedocumented in this encounter Care Teams Rn Internal Medicine Relationship Specialty Start Date End Date Anmol Quinteros DO [address] [place] [address] 18 [place] [address] PCP - General Internal Medicine 07/08/23 documented as of this encounter Additional Source Comments The information contained in this document represents components of the legal health record. It is not the complete legal health record.[facility]
--- OUTSIDE RECORDS SUMMARY | 2024-12-07 15:42 | XMS_ITS | Encounter Summary ---
Author Organization [facility] Address [phone] [place] [address] Care Team Providers Care Web Press Operator Name Role Phone Anmol Quinteros DO Primary Care Provider [phone] Encounter Details Date Type Department Care Team (Late Contact Info) Description 11/28/2024 Orders Only [facility] Adriana Stacy [address] [place] [address] Dustin Starks MD [address] [place] [address] Social History Tobacco Use Types Packs/Day Years [...] Description 04/05/2025 1:00 PM EDT Office Visit [facility] Adriana Stacy [address] [place] [address] Rafael Bentley DO [address] [place] [address] [email or web address] documented as of this encounter Procedures Procedure Name Priority Date/Time Associated Diagnosis Comments OUTSIDE EP STUDY Routine 10/17/2024 6:41 PM EST documented in this encounter Results * Outside EP Study Report Only (10/17/2024 6:41 PM EST) Dustin Starks MD CV ELECTROPHYSIOLOGY ORDERABLES documented in this encounter Visit Diagnoses Not on filedocumented in this encounter Care Teams Web Press Operator Relationship Specialty Start Date End Date Anmol Quinteros DO [address] [place] [address] PCP - General Internal Medicine 07/08/23 documented as of this encounter Additional Source Comments The information contained in this document represents components of the legal health record. It is not the complete legal health record.[facility]
--- OUTSIDE RECORDS SUMMARY | 2024-12-07 15:42 | XMS_ITS | Encounter Summary ---
Author Organization [facility] Address [phone] [address] [place] [address] Care Team Providers Care Reading Efficiency Course Director Name Role Phone Anmol Quinteros DO Primary Care Provider [phone] Reason for Visit * Reason Comments COPILOT-HF Encounter Details Date Type Department Care Team (Late st Contact Info) Description 11/25/2024 Documentation [facility] Cardiovascular [address] [address] Margot Whitaker [address] [place] [address] [email or web address] COPILOT-HF Social History Tobacco Use Types Packs/Day [...] questions or comments. Best, Margot Whitaker COPILOT-HF [facility] p: f: documented in this encounter Plan of Treatment Upcoming Encounters Date Type Department Care Team (Late st Contact Info) Description 04/05/2025 1:00 PM EDT Office Visit [facility] [address] [place] [address] [facility] [address] [place] [address] Rafael Bentley DO [address] [place] [address] [email or web address] documented as of this encounter Visit Diagnoses Not on filedocumented in this encounter Care Teams Reading Efficiency Course Director Relationship Specialty Start Date End Date Anmol Quinteros DO [address] [place] [address] 18 [place] [address] PCP - General Internal Medicine 07/08/23 documented as of this encounter Additional Source Comments The information contained in this document represents components of the legal health record. It is not the complete legal health record.[facility]
--- OUTSIDE RECORDS SUMMARY | 2024-12-07 15:42 | XMS_ITS | Encounter Summary ---
Author Organization [facility] Address [phone] [place] [address] Care Team Providers Care Propulsion Engineer Name Role Phone Anmol Quinteros DO Primary Care Provider [phone] Reason for Visit * Auth/Cert (Routine) Specialty Diagnoses / Procedures Referred By Cinthya alvarez Referred To Contact Referral ID Status Reason Start Date Expiration Date Visits Re quested Visits Authorized [id number] 1 1 Encounter Details Date Type Department Care Team (Late st Contact Info) Description 11/08/2024 10:00 AM EST Home Care Visit [facility] [address] [place] [address] Kymberly Ely, RN [address] [place] [address] [email or web address] PRECEPTOR CO-VISIT Social History Tobacco Use Types [...] Description 04/05/2025 1:00 PM EDT Office Visit [facility] [address] [place] [address] Dr [address] [place] [address] Rafael Bentley DO [address] [place] [address] [email or web address] documented as of this encounter Visit Diagnoses Not on filedocumented in this encounter Home Health Visit - Care Plan Visit Details Visit Type -SN PRECEPTOR CO- VISIT Discipline -Penitentiary Problems Problem Description Start Date Status Goals [...] Scheduled documented in this encounter Care Teams Propulsion Engineer Relationship Specialty Start Date End Date Anmol Quinteros DO [address] [place] [address] PCP - General Internal Medicine 07/08/23 documented as of this encounter Additional Source Comments The information contained in this document represents components of the legal health record. It is not the complete legal health record.[facility]
--- OUTSIDE RECORDS SUMMARY | 2024-12-07 15:42 | XMS_ITS | Encounter Summary ---
Author Organization [facility] Address [phone] [place] [address] Care Team Providers Care Assembler Billiard Table Name Role Phone Anmol Quinteros DO Primary Care Provider [phone] Reason for Visit * Reason Comments Medication Refill Encounter Details Date Type Department Care Team (Late Contact Info) Description 11/14/2024 Refill [facility] [address] [place] [address] Bam Thomson MD [address] [place] [address] [email or web address] Medication Refill Social History Tobacco Use Types [...] Description 04/05/2025 1:00 PM EDT Office Visit [facility] [address] [place] [address] Rafael Bentley DO 50 [place] [address] [email or web address] documented as of this encounter Visit Diagnoses Not on filedocumented in this encounter Care Teams Assembler Billiard Table Relationship Specialty Start Date End Date Anmol Quinteros DO [address] [place] [address] 18 [place] [address] PCP - General Internal Medicine 07/08/23 documented as of this encounter Additional Source Comments The information contained in this document represents components of the legal health record. It is not the complete legal health record.[facility]
--- OUTSIDE RECORDS SUMMARY | 2024-12-07 15:42 | XMS_ITS | Continuity of Care Document ---
Author Organization [facility] [place] Address [address] [place] [address] Phone Care Team Providers Care Page Technician Name Role Phone Unavailable Unavailable Unavailable Allergies, [...] times daily starting after surgery - Active [phone] or [phone] BromSite 0.075 % eye drops instill 1 [...] Provider Providers Copied on Encounter [facility], [address] [place] [address], [id number], tel:[phone] [facility] S/P PEIOL (chief complaint) Presence of pseudophakia 8 No Mrp Controller : Finn Durbin, [facility] [place], [address]. tel:[phone] [facility], , [address] [place] [address], [id number], tel:[phone] [facility] Precision No Information 8 Walter Santana. [address] [place], [place], [id number]. tel:[phone] Specialist : Louis Sepulveda, [place], [address]. tel:[phone] [facility], , [address] [place], [place], [id number], [place] tel:[phone] [facility] No Information Center [facility] Surgery. [address] [place], [place], [id number], [place]. tel:[phone] Referring Provider: Max Colon. Eye [facility], , [address] [place] [address], [id number], [place] tel:[phone] [facility] [address] [facility] No Information 8 Walter Santana. [address] [place], [place], [id number]. tel:[phone] Eye [facility], , [facility] [place], [place], [id number], [place] tel:[phone] [facility] [address] [facility] s/p PE IOL (04/02/18) (chief complaint)b lurry vision, glare (chief complaint) Presence of intraocular lensCombined forms of age-related cataract, right eye 8 Deja Goodrich. [address] [place], [place], [id number], [place]. tel:[phone] Specialist : Finn Durbin, [place], [address]. tel:[phone] [facility], , [facility] [place], [place], [id number], [place] tel:[phone] [facility] No Information 8 Walter Santana. [address] [place], [place], [id number]. tel:[phone] Specialist : [place], [address]. tel:[phone] [facility], , [address] [place], [place], [id number], [place] tel:[phone] [facility] No Information [facility] Surgery. [address] [place], [id number], [place]. tel:[phone] Referring Provider: Max Colon. Eye [facility], , [facility] [place], [place], [id number], [place] tel:[phone] [facility] [address] [facility] No Information Walter Santana. [address] [place] [address], [id number]. tel:[phone] Eye [facility], , [facility] [place], [place], [id number], [place] tel:[phone] [facility] Eye [facility] No Information Walter Santana. [address] [place] [address], [id number]. tel:[phone] Eye [facility], , [facility] [place], [place], [id number], [place] tel:[phone] [facility] Glare/blurr y vision (chief complaint) Combined forms of age-related cataract, left eyeCombined forms of age-related cataract, right eyeVitreous degeneration, bilateral Walter Santana. [address] [place] [address], [id number]. tel:[phone] Specialist : Finn Durbin, [address], [place], [address]. tel:[phone] Family History Family Member Type Diagnosis Age At Onset Brother Problem (finding) glaucoma Sister Problem (finding) glaucoma Brother Problem (finding) cataract Payers Payer name Insurance type Covered libertarian ID Authormaribela tisayda(s) [facility] Medicare Advantage [id number] Social History Type Description Quantity Date Captured [...]
--- OUTSIDE RECORDS SUMMARY | 2024-12-07 15:42 | XMS_ITS | Encounter Summary ---
Author Organization [facility] Address [phone] [place] [address] Care Team Providers Care Pace Analyst Name Role Phone Anmol Quinteros DO Primary Care Provider [phone] Reason for Visit * Auth/Cert (Routine) Specialty Diagnoses / Procedures Referred By Cinthya alvarez Referred To Contact Referral ID Status Reason Start Date Expiration Date Visits Re quested Visits Authorized [id number] 1 1 Encounter Details Date Type Department Care Team ([facility] Contact Info) Description 11/16/2024 10:30 AM EST Home Care Visit [facility] [address] [place] [address] Chauncey Calloway, RASTA [address] [place] [address] [email or web address] SN DISCIPLINE DISCHARGE VISIT Social History Tobacco [...] Description 04/05/2025 1:00 PM EDT Office Visit [facility] [address] [place] [address] [address] [place] [address] Rafael Bentley DO [address] [place] [address] [email or web address] documented as of this encounter Visit Diagnoses Not on filedocumented in this encounter Home Health Visit - Care Plan Visit Details Visit Type -SN DISCIPLINE DI [place] Discipline -Residential Problems Problem Description Start Date Status Goals [...] Completed documented in this encounter Care Teams Pace Analyst Relationship Specialty Start Date End Date Anmol Quinteros DO [address] [place] [address] 18 [place] [address] PCP - General Internal Medicine 07/08/23 documented as of this encounter Additional Source Comments The information contained in this document represents components of the legal health record. It is not the complete legal health record.[facility]
--- OUTSIDE RECORDS SUMMARY | 2024-12-07 15:42 | XMS_ITS | Encounter Summary ---
Author Organization [facility] Address [phone] [place] [address] Care Team Providers Care Director Private Name Role Phone Anmol Quinteros DO Primary Care Provider [phone] Reason for Visit * Auth/Cert (Routine) Specialty Diagnoses / Procedures Referred By Cinthya alvarez Referred To Contact Referral ID Status Reason Start Date Expiration Date Visits Re quested Visits Authorized [id number] 1 1 Encounter Details Date Type Department Care Team (Late st Contact Info) Description 11/10/2024 12:30 PM EST Home Care Visit [facility] [address] [place] [address] Lyric Pierre, PT [address] [place] [address] [email or web address] PT EVALUATION Social History Tobacco Use Types [...] Description 04/05/2025 1:00 PM EDT Office Visit [facility] [address] [place] [address] Dr Stacy [address] [place] [address] Rafael Bentley DO [address] [place] [address] documented as of this encounter Visit Diagnoses [...] to homecare services after hospitalization 2nd to [facility] with dx of covid and UTI. PMH: HFrEF s/p dual chamber pacemaker, HTN, A-fib on Eliquis. Pt resides with her granddaughter in single family home in her own small in-law apartment. Her daughter is a RN and lives nearby and provides daily support. Pt is alert and oriented x 4, she moved from [place] to [place] to be closer to family. Pt reports [...] Went to [place], took trip to [place]. [place]: 2 years ago in [place] Environment: pt lives in in law apt in her grand daughters home. walk in shower. flight of stairs to enter home with railings. daugher lives close by and involved in care. pt goals: I want to be able to be up longer, do some things in the kitchen Clinical summary: 89 year old female referred for home PT services s/p hospitalization 10/25-10/28 [facility] 2nd to weakness with dx of [...] documented in this encounter Care Teams Director Private Relationship Specialty Start Date End Date Anmol Quinteros DO [address] [place] [address] PCP - General Internal Medicine 07/08/23 documented as of this encounter Additional Source Comments The information contained in this document represents components of the legal health record. It is not the complete legal health record.[facility]
--- OUTSIDE RECORDS SUMMARY | 2024-12-07 15:42 | XMS_ITS | Encounter Summary ---
Author Organization [facility] Address [phone] [place] [address] Care Team Providers Care Fast Food Crew Lead Name Role Phone Anmol Quinteros Primary Care Provider [phone] Reason for Visit * Auth/Cert (Routine) Specialty Diagnoses / Procedures Referred By Cinthya alvarez Referred To Contact Referral ID Status Reason Start Date Expiration Date Visits Re quested Visits Authorized [id number] 1 1 Encounter Details Date Type Department Care Team (Late Contact Info) Description 11/08/2024 10:00 AM EST Home Care Visit [facility] [address] [place] [address] Chauncey Calloway, RASTA [address] [place] [address] [email or web address] SN HOME VISIT Social History Tobacco Use [...] Description 04/05/2025 1:00 PM EDT Office Visit [facility] [address] [place] [address] Dr [address] [place] [address] Rafael Bentley DO [address] [place] [address] [email or web address] documented as of this encounter Visit Diagnoses Not on filedocumented in this encounter Home Health Visit - Care Plan Visit Details Visit Type -SN HOME VISIT Discipline -Intermediate Problems Problem Description Start Date Status Goals [...] Completed documented in this encounter Care Teams Fast Food Crew Lead Relationship Specialty Start Date End Date BayronBlanca byersDO shannan [address] [place] [address] PCP - General Internal Medicine 07/08/23 documented as of this encounter Additional Source Comments The information contained in this document represents components of the legal health record. It is not the complete legal health record.[facility]
--- OUTSIDE RECORDS SUMMARY | 2024-12-07 15:42 | XMS_ITS | Encounter Summary ---
Author Organization [facility] Address [phone] [place] [address] Care Team Providers Care Staining Machine Operator Name Role Phone Anmol Quinteros DO Primary Care Provider [phone] Reason for Visit * Auth/Cert (Routine) Specialty Diagnoses / Procedures Referred By Cinthya alvarez Referred To Contact Referral ID Status Reason Start Date Expiration Date Visits Re quested Visits Authorized [id number] 1 1 Encounter Details Date Type Department Care Team (Late st Contact Info) Description 11/17/2024 2:15 PM EST Home Care Visit [facility] [address] [place] [address] Magda Huerta, VOICE PROFESSOR [address] [place] [address] [email or web address] VOICE PROFESSOR HOME VISIT Social History Tobacco Use Types [...] Description 04/05/2025 1:00 PM EDT Office Visit [facility] [address] [place] [address] [address] [place] [address] Rafael Bentley DO [address] [place] [address] documented as of this encounter Visit Diagnoses Not on filedocumented in this encounter Home Health Visit - Care Plan Visit Details Visit Type -VOICE PROFESSOR HOME VISIT Discipline -Physical Therapy Problems Problem [...] Completed documented in this encounter Care Teams Staining Machine Operator Relationship Specialty Start Date End Date Anmol Quinteros DO [address] [place] [address] PCP - General Internal Medicine 07/08/23 documented as of this encounter Additional Source Comments The information contained in this document represents components of the legal health record. It is not the complete legal health record.[facility]
--- OUTSIDE RECORDS SUMMARY | 2024-12-07 15:42 | XMS_ITS | Encounter Summary ---
Author Organization [facility] Address [phone] [place] [address] Care Team Providers Care Senior Sales Operations Manager Name Role Phone Anmol Quinteros DO Primary Care Provider [phone] Reason for Visit * Auth/Cert (Routine) Specialty Diagnoses / Procedures Referred By Cinthya alvarez Referred To Contact Referral ID Status Reason Start Date Expiration Date Visits Re quested Visits Authorized [id number] 1 1 Encounter Details Date Type Department Care Team (Late st Contact Info) Description 11/22/2024 12:15 PM EST Home Care Visit [facility] [address] [place] [address] Magda Huerta, DIESEL ENGINE FITTER [address] [place] [address] [email or web address] DIESEL ENGINE FITTER HOME VISIT Social History Tobacco Use Types [...] Description 04/05/2025 1:00 PM EDT Office Visit [facility] [address] [place] [address] Dr [address] [place] [address] Rafael Bentley DO [address] [place] [address] documented as of this encounter Visit Diagnoses Not on filedocumented in this encounter Home Health Visit - Care Plan Visit Details Visit Type -DIESEL ENGINE FITTER HOME VISIT Discipline -Physical Therapy Problems Problem [...] Completed documented in this encounter Care Teams Senior Sales Operations Manager Relationship Specialty Start Date End Date Bayronzeeshan DO Anmol [address] [place] [address] PCP - General Internal Medicine 07/08/23 documented as of this encounter Additional Source Comments The information contained in this document represents components of the legal health record. It is not the complete legal health record.[facility]
--- OUTSIDE RECORDS SUMMARY | 2024-12-07 15:42 | XMS_ITS | Encounter Summary ---
Author Organization [facility] Address [phone] [place] [address] Care Team Providers Care Pediatrics Physician Name Role Phone Anmol Quinteros DO Primary Care Provider [phone] Encounter Details Date Type Department Care Team (Latest Contact Info) Description 10/29/2023 Ancillary Orders Non-Invasive Cardiology [address] [place] [address] Rafael Bentley DO [address] [place] [address] [email or web address] Other cardiomyopathy (Primary Dx) [...] Description 04/05/2025 1:00 PM EDT Office Visit [facility] [address] [place] [address] Rafael Bentley DO [address] [place] [address] [email or web address] Scheduled Orders Name Type Priority Associated Diagnoses [...] ?? Examination: ?? Device type: BiV Pacemaker Directory Operator: [employer] Mode: ??DDD LRL/UPL: ??60/120 bpm ?? [...] device: Cardiomyopathy. Examination: Device type: BiV Pacemaker Directory Operator: [employer] Mode: DDD LRL/UPL: 60/120 bpm Mode [...] Primary documented in this encounter Care Teams Pediatrics Physician Relationship Specialty Start Date End Date Anmol Quinteros DO [address] [place] [address] PCP - General Internal Medicine 07/08/23 documented as of this encounter Additional Source Comments The information contained in this document represents components of the legal health record. It is not the complete legal health record.[facility]
[2024-12-07 16:42] LABS: Urine Cytology See Pathology rpt
== END 2024-12-07 12:59 | disposition home or self-care (01) ==
LOC: HO.LAB 12:58
PROVIDERS: PCP Internal Medicine; Visit Provider Nurse Practitioner Family
DX: N39.0 Urinary tract infection, site not specified (principal)
CPT/HCPCS: 51798; 81003; 88112; 99202

== ENCOUNTER 2025-04-05 13:39 | Outpatient (REF) | payer MEDICARE, SELFPAY ==
--- NOTE | ~2025-04-05 | US_ITS ---
CLINICAL HISTORY: N39.0 - Urinary tract infection, site not specified US Renal Comparison: None Findings: Right kidney measures 9 cm in length and left kidney measures 9.2 cm in length. Bilateral normal cortical echogenicity. Increased medullary echogenicity of both kidneys. Query medullary nephrocalcinosis. No hydronephrosis or renal mass lesion. Urinary bladder is unremarkable. Prevoid volume 413 mL. Postvoid volume 21 mL. Unremarkable urinary bladder. Bilateral ureteral jets are visualized. IMPRESSION: Query bilateral medullary nephrocalcinosis. This document has been electronically signed by: Sylvia Joe MD on 04/06/2025 08:43:11
--- OUTSIDE RECORDS SUMMARY | 2025-04-05 14:34 | XMS_ITS | Clinical Summary ---
Author Organization [facility] Address [address] [place] [address] Phone Care Team Providers Care Director Pharmacology Name Role Phone LouieAnmol leary Primary Care Provider [phone] Social History Tobacco Use Types Packs/Day Years Used Date Smoking Tobacco: Never Assessed Comments Unknown Sex and Gender Information Value Date Recorded Sex Assigned at Female 11/30/2024 3:55 PM EST Legal Sex Female 8:23 PM EST Gender Identity Female 11/30/2024 3:55 PM EST Sexual Orientation Straight 11/30/2024 3: 55 PM EST Plan of Treatment Health Maintenance Due Date Last Done Comments DTaP,Tdap,and Td Vaccines (1 - Tdap) 1954 Pneumococcal Vaccine: 50+ Ye ars (1 of 2 - PCV) 1955 Zoster Vaccines (1 of 2) 1986 RSV Immunization Adult Patie nts (1 - 1-dose 75+ series) 2011 Cholesterol Screening (Lipid Panel) 12/03/2023 Depression Screening 12/03/2023 Falls Risk Assessment 12/03/2023 Medicare Annual Wellness Visit 12/03/2023 Osteoporosis Screening (Bone Density Screening) 12/03/2023 Social Influencers of Health Screening 12/03/2023 COVID-19 Vaccine ( - 2023-2 5 season) 2024 Influenza Vaccine (Season Ended) 2025 Hypertension/CHF/CAD Annual BMP Blood Test 11/30/2025 11/30/2024 [...] patient's age to complete this topic Meningococcal B Vaccine Aged Out No l onger eligible based on patient's age to complete this topic RSV Immunization Patients Un agapito 20 months Aged Out No longer eligible b ased on patient's age to complete this topic Varicella Vaccines Aged Out No longer eligible based on patient's age to complete this topic Procedures Procedure Name Priority Date/Time Associated Diagnosis Comments COMPREHENSIVE METABOLIC PANEL Routine 11/30/2024 3:07 PM EST Heart failure ([facility] V24, [facility] V28) UTI (urinary tract infection) from Last 3 Months or Most Recently Relevant to Health Maintenance Results * (ABNORMAL) Comprehensive metabolic panel (11/30/2024 3:07 PM EST) Sodium 135 133 - 145 mmol/L LAB CHEMISTRY METHOD 11/30/2024 8:13 PM [facility] Potassium 4.3 3.5 - 5.5 mmol/L LAB CHEMISTRY METHOD 11/30/2024 8:13 PM [facility] Chloride 103 96 - 110 mmol/L LAB CHEMISTRY METHOD 11/30/2024 8:13 PM [facility] CO2 27 21 - 32 mmol/L LAB CHEMISTRY METHOD 11/30/2024 8:13 PM [facility] Anion Gap 5 3 - 11 LAB CHEMISTRY METHOD 11/30/2024 8:13 PM [facility] Glucose 113(H) 70 - 100 mg/dL LAB CHEMISTRY METHOD 11/30/2024 8:13 PM [facility] BUN 20 5 - 25 mg/dL LAB CHEMISTRY METHOD 11/30/2024 8:13 PM [facility] Creatinine 1.26(H) 0.50 - 1.10 mg/dL LAB CHEMISTRY METHOD 11/30/2024 8:13 PM [facility] eGFR 41(L) >=60 mL/min/1. 73m2 LAB CHEMISTRY METHOD 11/30/2024 8:13 PM [facility] Comment:Calculation based on the??Chronic Kidney Disease Epidemiology Collaboration (CKD-EPI) equation refit??without adjustment for race. BUN/Creatinine Ratio 15.9 LAB CHEMISTRY METHOD 11/30/2024 8:13 PM [facility] Calcium 10.4 8.5 - 10.5 mg/dL LAB CHEMISTRY METHOD 11/30/2024 8:13 PM [facility] AST (SGOT) 34 10 - 42 unit/L LAB CHEMISTRY METHOD 11/30/2024 8:13 PM [facility] ALT (SGPT) 22 10 - 60 unit/L LAB CHEMISTRY METHOD 11/30/2024 8:13 PM [facility] Alkaline Phosphatase 65 42 - 121 unit/L LAB CHEMISTRY METHOD 11/30/2024 8:13 PM [facility] Total Protein 7.7 6.0 - 8.0 g/dL LAB CHEMISTRY METHOD 11/30/2024 8:13 PM [facility] Albumin 4.3 3.2 - 5.0 g/dL LAB CHEMISTRY METHOD 11/30/2024 8:13 PM [facility] Total Bilirubin 1.0 0.0 - 1.4 mg/dL LAB CHEMISTRY METHOD 11/30/2024 8:13 PM [facility] Blood Venous blood specimen / Unknown Venipuncture / Unknown 11/30/2024 3:07 PM EST 11/30/2024 3:07 PM EST us Haque Brennan TEXTILE BROKER LAB BLOOD ORDERABLES Final Resul t [facility] [address] [place] [address], [place] [phone] from Last 3 Months or Most Recently Relevant to Health Maintenance Insurance [employer] MEDICARE Care Teams Director Pharmacology Relationship Specialty Start Date End Date Anmol Quinteros DO [address] [place] [phone] PCP - General Internal Medicine 11/30/24
== END 2025-04-05 13:40 | disposition home or self-care (01) ==
LOC: HO.HMGCX 13:39
PROVIDERS: PCP Internal Medicine; Visit Provider Nurse Practitioner Family
DX: N39.0 Urinary tract infection, site not specified (principal)
CPT/HCPCS: 76770

== ENCOUNTER → 2025-04-05 13:41 | Outpatient (BNV) | payer MEDICARE, SELFPAY | PROVIDERS: PCP Internal Medicine; Visit Provider Radiology Diagnostic Radiology | DX: E83.59 Other disorders of calcium metabolism (principal) | CPT/HCPCS: 76770 ==

== ENCOUNTER 2025-04-19 12:10 | Outpatient (AMB) | payer MEDICARE, SELFPAY ==
--- NOTE | 2025-04-19 12:10 | MHC.OFFVIS ---
Intake Visit Reasons: 3M follow up/ US Intake Note: Patient is present for 3m follow up/US Imaging 04/05 Urology Med: None Antibiotic Allergies: None Blood Thinner:Eliquis [employer] Required: No Final Installer Inspector: Final Installer Inspector Present (Kirstie) Accompanied by: Daughter Allergies No Known Allergies Allergy (Verified 04/19/25 21:36) Medication List - Last Reconciled 04/19/25 by EL Parmar-IVÁN apixaban (Eliquis) 2.5 mg PO DAILY ascorbic acid (vitamin C) 1 g PO DAILY 90 days atorvastatin 40 mg PO DAILY bumetanide 1 - 2 mg PO DAILY cholecalciferol (vitamin D3) 50 mcg PO DAILY estradiol 0.01%(0.1mg/gram) 2 grams vaginal DAILY 90 days levothyroxine 25 mcg PO QAM methenamine hippurate 1 g PO daily 90 days metoprolol succinate ER 25 mg PO DAILY HPI Comments Details: Janette Garza is a 89-year-old female patient of Dr. Quinteros who was accompanied by her daughter at today's office visit. She has a past medical history of hyperlipidemia, atrial fibrillation, and congestive heart failure. She is being followed up on today via video telehealth for a follow-up. Of note, patient was seen approximately 5 months ago as a new patient for recurrent urinary tract infections at which time a retroperitoneal ultrasound was ordered for further assessment evaluation. These results were reviewed and communicated with the patient and her daughter today. 04/02 bilateral normal cortical echogenicity. Increased medullary echogenicity of both kidneys. No hydronephrosis or renal masses noted bilaterally. The urinary bladder is unremarkable. Pre void bladder volume was 415 mL. Postvoid bladder volume was 20 mL. She reports compliance with Estrace cream as well as methenamine and vitamin-C for suppression. She reports feeling she had UTI like symptoms earlier this month however a urine culture was ordered and obtained and no infection was noted. She reports symptoms have since resolved. We did discussed potential causes of these lower urinary tract symptoms. Patient with a previous history of following up with a urologist in the and undergoing potential cystocele repair however she is unsure as to exactly what the procedure was called. During last office visit patient was noted to have microscopic hematuria and urine was also sent for urine cytology these results were reviewed and communicated with the patient today. 12/03 Urine Cytology Negative for high-grade urothelial carcinoma. She denies any previous history of nicotine dependence and or workplace chemical exposure. She reports typical UTI symptoms are fatigue and urinary leakage. She currently denies nocturia, hematuria, dysuria, foul smelling urine, changes to urinary stream, flank pain, fever, and or chills. She otherwise offers no other issues or concerns at this time. [facility] Medical History Hyperlipidemia Congestive heart failure Atrial fibrillation Review of Systems Const All systems reviewed & are unremarkable except as noted in HPI and below Eyes Reports no additional complaints ENT Reports no additional complaints Card Reports as per HPI Resp Reports no additional complaints GI Reports no additional complaints Reports as per HPI Musc Reports no additional complaints Neuro Reports no additional complaints Psych Reports no additional complaints Endo Reports no additional complaints Tutu/Lymph Reports no additional complaints Aller/Immun Reports no additional complaints Physical Exam Const General: cooperative, healthy appearing, comfortable, no acute distress, well developed, alert and awake Orientation/consciousness: patient oriented x3 Resp Effort & Inspection: normal respiratory effort and able to speak in complete sentences Neuro General: patient oriented x3 Psych Appearance: grossly normal and well kempt Speech and movement: Clear speech present Affect: normal affect Attitude: cooperative Thought process: Normal thought process present Thought content: Normal thought content present Insight: Fair insight present (Psych) Judgement: Fair judgement present (Psych) Telehealth Telehealth Telehealth Platform: [facility] Location of provider rendering services: practice address Location of patient: address on file Patient Identification confirmed using: Name, : Yes Telehealth method: video Patient verbally consented to treatment: Yes Patient verbally consented to billing insurance company: Yes Patient informed of any privacy concerns related to visit: Yes Minutes spent on Phone/Video with Pt.: 15 Results Reviewed Results Reviewed: Date of Service: 04/05/25 Procedure(s): US retroperitoneal comp Findings: Right kidney measures 9 cm in length and left kidney measures 9.2 cm in length. Bilateral normal cortical echogenicity. Increased medullary echogenicity of both kidneys. Query medullary nephrocalcinosis. No hydronephrosis or renal mass lesion. Urinary bladder is unremarkable. Prevoid volume 413 mL. Postvoid volume 21 mL. Unremarkable urinary bladder. Bilateral ureteral jets are visualized. IMPRESSION: Query bilateral medullary nephrocalcinosis. Assessment & Plan Assessment & Plan (1) Recurrent urinary tract infection: Code(s): N39.0 - Urinary tract infection, site not specified Category: Medical Plan Recent retroperitoneal ultrasound results were reviewed with the patient and her daughter today; as noted above. Continue methenamine, vitamin-C, and Estrace. We discussed potential causes of recurrent urinary tract infections as well as further treatment options and risks and benefits of these treatment options. She currently denies any bothersome urinary issues. Will continue with surveillance monitoring. Discussed UTI prevention with D mannose supplement, vitamin-C, increasing fluid intake, behavioral therapy with timed voiding, perineal hygiene and postcoital voiding, and management of constipation with stool softeners and increased fiber intake. Follow-up in 6 months with [facility]; or sooner with any issues, concerns, and or questions. Medications: Discontinued nitrofurantoin monohyd/m-cryst 100 mg (Macrobid) hold methenamine while on treatment dose for active UTI Discontinued Reason: Patient Completed Course 100 mg PO Q12H 14 days 28 caps 0RF Patient Instructions: The patient had an opportunity to ask questions regarding the treatment plan. All questions were answered. Physical exam, labs, and imaging were discussed and reviewed in detail. As well as risks, benefits, and discussion of treatment choices. No major barriers to understanding were identified. The patient expressed understanding and agreement with the above treatment plan. The patient was made aware they should contact our office by phone for worsening of their current condition, the appearance of new symptoms, or with any questions or concerns. Compliance is encouraged with any medications and follow up testing that is ordered. It is a privilege to be allowed the opportunity to participate in? your urological care.? Again, if you have any questions or concerns If you have any questions or concerns please do not hesitate to contact me. The office is [phone]. This note is constructed using voice recognition software. While every effort has been made to ensure accuracy supply room clerk errors may have been included. Yours sincerely, MANUELA Parmar Coding Level of Care Code Tele Est Pt Level 3 (84518) Diagnoses Recurrent urinary tract infection N39.0
--- OUTSIDE RECORDS SUMMARY | 2025-04-19 13:45 | XMS_ITS | Clinical Summary ---
Author Organization [address] [facility] Address [address] [place] [phone] Phone Care Team Providers Care Instructor Product Inspection Name Role Phone Juan JoséAnmol son Primary Care Provider [phone] Social History Tobacco Use Types Packs/Day Years [...] Routine 11/30/2024 3:07 PM EST Heart failure ([facility] V24, [facility] V28) UTI (urinary tract infection) from Last 3 Months or Most Recently Relevant to Health Maintenance Results * (ABNORMAL) Comprehensive metabolic panel (11/30/2024 3:07 PM EST) Sodium 135 133 - 145 mmol/L LAB CHEMISTRY METHOD 11/30/2024 8:13 PM [facility] Potassium 4.3 3.5 - 5.5 mmol/L LAB CHEMISTRY METHOD 11/30/2024 8:13 PM [facility] Chloride 103 96 - 110 mmol/L LAB CHEMISTRY METHOD 11/30/2024 8:13 PM [facility] CO2 27 21 - 32 mmol/L LAB CHEMISTRY METHOD 11/30/2024 8:13 PM [facility] Anion Gap 5 3 - 11 LAB CHEMISTRY METHOD 11/30/2024 8:13 PM [facility] Glucose 113(H) 70 - 100 mg/dL LAB CHEMISTRY METHOD 11/30/2024 8:13 PM [facility] BUN 20 5 - 25 mg/dL LAB CHEMISTRY METHOD 11/30/2024 8:13 PM [facility] Creatinine 1.26(H) 0.50 - 1.10 mg/dL LAB CHEMISTRY METHOD 11/30/2024 8:13 PM [facility] eGFR 41(L) >=60 mL/min/1. 73m2 LAB CHEMISTRY METHOD 11/30/2024 8:13 PM [facility] Comment:Calculation based on the??Chronic Kidney Disease Epidemiology Collaboration (CKD-EPI) equation refit??without adjustment for race. BUN/Creatinine Ratio 15.9 LAB CHEMISTRY METHOD 11/30/2024 8:13 PM [facility] Calcium 10.4 8.5 - 10.5 mg/dL LAB CHEMISTRY METHOD 11/30/2024 8:13 PM [facility] AST (SGOT) 34 10 - 42 unit/L LAB CHEMISTRY METHOD 11/30/2024 8:13 PM [facility] ALT (SGPT) 22 10 - 60 unit/L LAB CHEMISTRY METHOD 11/30/2024 8:13 PM [facility] Alkaline Phosphatase 65 42 - 121 unit/L LAB CHEMISTRY METHOD 11/30/2024 8:13 PM [facility] Total Protein 7.7 6.0 - 8.0 g/dL LAB CHEMISTRY METHOD 11/30/2024 8:13 PM [facility] Albumin 4.3 3.2 - 5.0 g/dL LAB CHEMISTRY METHOD 11/30/2024 8:13 PM [facility] Total Bilirubin 1.0 0.0 - 1.4 mg/dL LAB CHEMISTRY METHOD 11/30/2024 8:13 PM [facility] Blood Venous blood specimen / Unknown Venipuncture / Unknown 11/30/2024 3:07 PM EST 11/30/2024 3:07 PM EST us Haque Brennan HAND PACKAGER LAB BLOOD ORDERABLES Final Resul t [facility] [address] [place] [address], [place] [phone] from Last 3 Months or Most Recently Relevant to Health Maintenance Insurance [employer] MEDICARE Care Teams Instructor Product Inspection Relationship Specialty Start Date End Date Anmol Quinteros DO [address] [place] [phone] PCP - General Internal Medicine 11/30/24
== END 2025-04-19 13:31 | disposition home or self-care (01) ==
LOC: HO.HUSH 12:10
PROVIDERS: PCP Internal Medicine; Visit Provider Nurse Practitioner Family
DX: N39.0 Urinary tract infection, site not specified (principal)
CPT/HCPCS: 99213

== ENCOUNTER → 2025-04-19 12:10 | Outpatient (BNVA) | payer MEDICARE, SELFPAY | PROVIDERS: PCP Internal Medicine; Visit Provider Nurse Practitioner Family ==

== ENCOUNTER 2025-05-29 15:18 | Outpatient (REF) | payer MEDICARE, SELFPAY ==
--- OUTSIDE RECORDS SUMMARY | 2018-04-30 11:20 | XMS_ITS | Continuity of Care Document ---
Author Organization [facility] [place] Address [address] [place] [address] Phone Care Team Providers Care Commercial Sewing Instructor Name Role Phone Unavailable Unavailable Unavailable Allergies, Adverse Reactions, Alerts Substance Reaction Status Criticality No Known Allergies Active No Inform ation Medications Medication Instructions Dosage Effective Dates (start - stop) Status Comments BromSite 0.075 % eye drops instill 1 drop in surgical eye 1 time daily starting 1 day prior to surgery - Active prednisolone acetate 1 % eye drops,suspension instill 1 drop in surgical eye 3 times daily starting after surgery - Active [phone] or [phone] BromSite 0.075 % eye drops instill 1 drop in surgical eye 1 time daily starting 1 day prior to surgery - Active acetaminophen 325 mg capsule Every 4 - 6 hrs as needed - Active Aspir-81 81 mg tablet,delayed release take 1 tablet by oral route every day - Active Tums 200 mg calcium (500 mg) chewable tablet 1-2 as needed - Active Colace 100 mg capsule take 1 capsule by oral route every day at bedtime as needed 100 MG - Active Flonase Allergy Relief 50 mcg/actuation nasal spray,suspension inhale 2 spray by intranasal route every day in each nostril 100 MCG - Active lisinopril 2.5 mg tablet take 1 tablet by oral route every day 2.5 MG - Active multivitamin tablet take 1 tablet by oral route every day with food - Active omega-3 fatty acids 1,000 mg capsule take 2 capsules by oral route every day 2 capsules - Active Protonix 40 mg tablet,delayed release take 1 tablet by oral route every day 40 MG - Active escitalopram 10 mg tablet take 1 tablet by oral route every day 10 MG - Active moxifloxacin 0.5 % eye drops instill 1 drop in surgical eye 3 times daily starting 1 day prior to surgery - No Longer Active left eye 04/30 pt already had tropicamide (original rx we sent for both eyes and pt only got drops for one eye, please verify that this is correct and pt only paid for one eye. THANK YOU!) tropicamide 1 % eye drops Instill 2 drops in surgical eye 30 minutes before arrival on day of surgery - No Longer Active moxifloxacin 0.5 % eye drops instill 1 drop in surgical eye 3 times daily starting 1 day prior to surgery - No Longer Active Sx: 04/02 prednisolone acetate 1 % eye drops,suspension instill 1 drop in surgical eye 3 times daily starting after surgery - No Longer Active Procedures Procedure Date No Charge Office Visit Cataract Sg With [facility] No Charge Office Visit Cataract Sg With [facility] Eye Exam New Patient Advance Directives Directive Yes / No Effective Date File Name No Information Encounters Encounter Description Practice Location Reason(s) For Visit Diagnoses Date Provider Providers Copied on Encounter [facility], [address] [place] [address], [id number], tel:[phone] [facility] Presence of pseudophakia 8 No Public Records Officer : Finn Durbin, [facility] [place], [address]. tel:[phone] [facility], , [address] [place] [address], [id number], tel:[phone] [facility] Precision No Information 8 Walter Santana. [address] [place] [address], [id number]. tel:[phone] Specialist : Louis Sepulveda, [place], [address]. tel:[phone] [facility], , [address] [place] [address], [id number], [place] tel:[phone] [facility] Precision No Information Center [facility]. [address], [place], [place], [id number], [place]. tel:[phone] [facility], , [address] [place] [address], [id number], [place] tel:[phone] [facility] No Information Foster Max. [address] [place] [address], [id number]. tel:[phone] [facility], , [address] [place] [address], [id number], [place] tel:[phone] [facility] Presence of intraocular lensCombined forms of age-related cataract, right eye No Public Records Officer : Louis Sepulveda, [place], [address]. tel:[phone] [facility], , [address] [place] [address], [id number], [place] tel:[phone] [facility] Prec[facility] No Information 8 Walter Santana. [address] [place] [address], [id number]. tel:[phone] Specialist : Louis Sepulveda, [place], [address]. tel:[phone] [facility], , [address] [place] [address], [id number], [place] tel:[phone] [facility] Prec[facility] No Information Center [facility] Surgery. [address] [place], [place], [id number], . tel:[phone] [facility], , [address], [place], [id number], [place] tel:[phone] [facility] No Information 8 Foster Max. [address], [place], [id number]. tel:[phone] [facility], , [address] [place] [address], [id number], [place] tel:[phone] [facility] No Information 8 Foster Max. [address], [place], [id number]. tel:[phone] [facility], , [address] [place] [address], [id number], tel:[phone] [facility] Combined forms of age-related cataract, left eyeCombined forms of age-related cataract, right eyeVitreous degeneration, bilateral Feb- 8 Foster Max. [address], [place], [id number]. tel:[phone] Specialist : Finn Durbin, [facility], [place], [address]. tel:[phone] Family History Family Member Type Diagnosis Age At Onset Brother Problem (finding) glaucoma Sister Problem (finding) glaucoma Brother Problem (finding) cataract Payers Payer name Insurance type Covered libertarian ID Authoriza tion(s) [facility] Medicare Advantage [id number] Social History Type Description Quantity Date Captured Comments Alcohol Use Details No Caffeine Use Details Unknown Tobacco Use Status No Information Smoking Status Never smoker Sex Female Chief Complaint And Reason For Visit No Information Reason For Referral Reason For Referral No Information History Of Present Illness Encounter Date Complaint History Of Prese nt Illness No Information Functional Status Date Functional Assessmen t No Information Instructions Date Instruction Additional Infor mation See optom as scheduled Related t o Presence of pseudophakia Follow up - See optom as schedul ed Related to Presence of pseudophakia Impression/Plan - St able. Use meds as directed. Don't rub eye or get dirty water in. Wear sheild at night. Call MAKENZIE if redness, pain or VA decreases. Related to Presence of pseudophakia Return as scheduled for Pre-op and see Dr. Durbin for PO Related to Presence of intraocular lens Schedule cat surgery OD Related to Combined forms of age-related cataract, right eye Follow up - Return a s scheduled for Pre-op and see Dr. Durbin for PO Related to Presence of intraocular lens Impression/Plan - Rebel camnt advised to continue to use drops as instructed and to not rub eye. Patient was also advised to keep postoperative appointment as scheduled for follow up. Patient to call office with any problems. Related to Presence of intraocular lens Follow up - Schedule cat surgery OD Related to Combined forms of age-related cataract, right eye Impression/Plan - Ca taracts account for the patient's complaints. Discussed all risks, benefits, procedures and recovery. Patient understands changing glasses are not likely to significantly improve vision. Patient desires to have surgery, recommend phacoemulsification with intraocular lens. 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 Discussed all risks, benefits, procedures and recovery. Patient understands changing glasses are not likely to significantly improve vision. Patient desires to have surgery, recommend phacoemulsification with intraocular lens. 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 Discussed all risks, benefits, procedures and recovery. Patient understands changing glasses are not likely to significantly improve vision. Patient desires to have surgery, recommend phacoemulsification with intraocular lens. Related to Combined forms of age-related cataract, left eye Impression/Plan - Di scussed diagnosis in detail with patient. Will continue to observe condition and or symptoms. Related to Vitreous degeneration, bilateral Assessments Type Assessment Date assessment Presence of pseudophakia 2017 impression Presence of pseudophakia: Z96.1. OD. Patient Care Teams Name Effective Dates (start - stop) Status Members No Information
--- OUTSIDE RECORDS SUMMARY | 2025-05-29 15:51 | XMS_ITS | Clinical Summary ---
Author Organization [address] [facility] Address [address] [place] [phone] Phone Care Team Providers Care Tornado Chaser Name Role Phone LouieAnmol leary Primary Care Provider [phone] Social History Tobacco Use Types Packs/Day Years [...] series) 2011 Cholesterol Screening (Lipid Panel) 12/03/2023 Falls Risk Assessment 12/03/2023 Medicare Annual Wellness Visit 12/03/2023 Osteoporosis Screening (Bone Density Screening) 12/03/2023 Social Influencers of Health Screening 12/03/2023 COVID-19 Vaccine ( - 2023-2 5 season) 2024 Depression Screening 11/09/2024 Influenza Vaccine (#1) 2025 Hypertension/CHF/CAD Annual BMP Blood Test 11/30/2025 [...] Routine 11/30/2024 3:07 PM EST Heart failure ([facility] V24, [facility] V28) UTI (urinary tract infection) from Last 3 Months or Most Recently Relevant to Health Maintenance Results * (ABNORMAL) Comprehensive metabolic panel (11/30/2024 3:07 PM EST) Sodium 135 133 - 145 mmol/L LAB CHEMISTRY METHOD 11/30/2024 8:13 PM [facility] Potassium 4.3 3.5 - 5.5 mmol/L LAB CHEMISTRY METHOD 11/30/2024 8:13 PM [facility] Chloride 103 96 - 110 mmol/L LAB CHEMISTRY METHOD 11/30/2024 8:13 PM [facility] CO2 27 21 - 32 mmol/L LAB CHEMISTRY METHOD 11/30/2024 8:13 PM [facility] Anion Gap 5 3 - 11 LAB CHEMISTRY METHOD 11/30/2024 8:13 PM [facility] Glucose 113(H) 70 - 100 mg/dL LAB CHEMISTRY METHOD 11/30/2024 8:13 PM [facility] BUN 20 5 - 25 mg/dL LAB CHEMISTRY METHOD 11/30/2024 8:13 PM [facility] Creatinine 1.26(H) 0.50 - 1.10 mg/dL LAB CHEMISTRY METHOD 11/30/2024 8:13 PM [facility] eGFR 41(L) >=60 mL/min/1. 73m2 LAB CHEMISTRY METHOD 11/30/2024 8:13 PM [facility] Comment:Calculation based on the Chronic Kidney Disease Epidemiology Collaboration (CKD-EPI) equation refit without adjustment for race. BUN/Creatinine Ratio 15.9 LAB CHEMISTRY METHOD 11/30/2024 8:13 PM [facility] Calcium 10.4 8.5 - 10.5 mg/dL LAB CHEMISTRY METHOD 11/30/2024 8:13 PM [facility] AST (SGOT) 34 10 - 42 unit/L LAB CHEMISTRY METHOD 11/30/2024 8:13 PM [facility] ALT (SGPT) 22 10 - 60 unit/L LAB CHEMISTRY METHOD 11/30/2024 8:13 PM [facility] Alkaline Phosphatase 65 42 - 121 unit/L LAB CHEMISTRY METHOD 11/30/2024 8:13 PM [facility] Total Protein 7.7 6.0 - 8.0 g/dL LAB CHEMISTRY METHOD 11/30/2024 8:13 PM [facility] Albumin 4.3 3.2 - 5.0 g/dL LAB CHEMISTRY METHOD 11/30/2024 8:13 PM [facility] Total Bilirubin 1.0 0.0 - 1.4 mg/dL LAB CHEMISTRY METHOD 11/30/2024 8:13 PM [facility] Blood Venous blood specimen / Unknown Venipuncture / Unknown 11/30/2024 3:07 PM EST 11/30/2024 3:07 PM EST us Haque Brennan SENIOR JAVA J2EE DEVELOPER LAB BLOOD ORDERABLES Final Resul t [facility] [address] [place] [address], [place] [phone] from Last 3 Months or Most Recently Relevant to Health Maintenance Insurance [employer] MEDICARE Care Teams Tornado Chaser Relationship Specialty Start Date End Date Anmol Quinteros DO [address] [place] [phone] PCP - General Internal Medicine 11/30/24
--- OUTSIDE RECORDS SUMMARY | 2025-05-29 15:51 | XMS_ITS | Encounter Summary ---
Author Organization [facility] Address [address] [place] [address] [place] [phone] Phone Care Team Providers Care Home Based Assistant Name Role Phone Anmol Quinteros Primary Care Provider [phone] Encounter Details Date Type Department Care Team (Late st Contact Info) Description 07/26/2024 Procedure Pass Echo Lab [place] [place] [address] Social History Tobacco Use Types Packs/Day Years [...] with a working camera? Not on file Comments Unknown Sex and Gender Information Value Date Recorded Sex Assigned at Not on file Legal Sex Female 8:08 AM EDT Gender Identity Not on file Sexual Orientation Not on file documented as of this encounter Plan of Treatment Upcoming Encounters Date Type Department Care Team (Late st Contact Info) Description 07/12/2025 1:30 PM EDT Office Visit [facility] [address] [facility] [address], [address] [place] [address] Viry Olmos, [facility] [address] [place] [address] documented as of this encounter Visit Diagnoses Not on filedocumented in this encounter Care Teams Home Based Assistant Relationship Specialty Start Date End Date Anmol Quniteros DO [address] [place] [address] [address] [place] [address] PCP - General Internal Medicine 07/08/23 documented as of this encounter Additional Source Comments The information contained in this document represents components of the legal health record. It is not the complete legal health record.[facility]
[2025-05-29 16:32] LABS: Appearance Urine Cloudy; Glucose Urine UA Negative (Negative); PH 5.5 (5.0-9.0); Specific Gravity - Urine 1.010 (1.005-1.025); UMIC TRIGGER UA YES
== END 2025-05-29 15:19 | disposition home or self-care (01) ==
LOC: HO.HMGCLDS 15:18
PROVIDERS: PCP Internal Medicine; Visit Provider Nurse Practitioner Family
DX: N39.0 Urinary tract infection, site not specified (principal)
CPT/HCPCS: 81001; 87086